=== PATIENT | female | born 1970 | race Caucasian/White ===

== ENCOUNTER → 2022-08-21 | Outpatient (CLI) | payer BC, MEDICARE, SELFPAY ==
[2022-08-21 17:42] LABS: Absolute Lymphocyte Count 2.14 X10^3/uL (0.83-4.51); Absolute Neutrophil Count 6.4 X10^3/uL (2.0-7.7); Basophil# 0.04 X10^3/uL; Basophil% 0.4 % (0-1); Eosinophil# 0.35 X10^3/uL; Eosinophils% 3.6 % (0-5); Hematocrit 44.8 % (37-47); Lymphocyte # 2.14 X10^3/ul (0.83-4.51); Lymphocyte % 21.9 % (19-41); Mean Corp Hgb Conc 33.5 g/dL (32-36); Mean Corpuscular Hgb 30.8 pg (27.0-32.0); Mean Platelet Vol. 9.2 fl (6.2-12.0); Monocyte# 0.76 X10^3/uL; Monocyte% 7.8 % (0-10); NRBC Flagged by Analyzer 0 % (0-5); Neutrophil # 6.43 X10^3/uL (2.7-7.7); Neutrophil % 65.9 % (47-70); Platelet Count 286 K/mm3 (150-450); RBC Distribution Width CV 13.1 % (11.6-14.6); RBC Distribution Width SD 43.9 fl (35.1-43.9); Red Blood Count 4.87 M/mm3 (4.2-5.4); White Blood Count 9.8 K/mm3 (4.4-11.0)
[2022-08-21 18:24] LABS: International Normalized Ratio 1.1; Prothrombin Time (Protime)PT. 14.3 SECONDS (11.7-14.9)
[2022-08-21 18:32] LABS: ALB/GLOB Ratio 0.9 RATIO (0.9-2.4); AST(SGOT) 32 U/L (15-37); Alanine Aminotransfer ALT/SGPT 29 U/L (13-56); Albumin, Serum 3.5 g/dL (3.2-5.0); Alkaline Phosphatase 280 U/L (45-117); Anion Gap 7 (5-15); BUN 10 mg/dL (7-18); Calcium,Total 10.2 mg/dL (8.5-10.1); Chloride 102 mmol/L (98-107); EST Glomerular Filtration Rate 69 mL/min (>60); Est Glom Filt Rate - Afr Amer 83 mL/min (>60); Globulin 3.7 g/dL (2.2-4.2); Glucose 50 mg/dL (74-106); Potassium 3.5 mmol/L (3.5-5.1); Protein, Total 7.2 g/dL (6.4-8.2); Sodium Level 142 mmol/L (136-145)
[2022-08-21 19:10] LABS: Hepatitis C Antibody Non-Reactive (Nonreactive); Vitamin D,25 Hydroxy 44.2 ng/mL
== END | disposition home or self-care (01) ==
PROVIDERS: Visit Provider Family Medicine Geriatric Medicine
DX: I81 Portal vein thrombosis (principal); I50.32 Chronic diastolic (congestive) heart failure; E87.6 Hypokalemia; E03.9 Hypothyroidism, unspecified; Z13.89 Encounter for screening for other disorder; E55.9 Vitamin D deficiency, unspecified
CPT/HCPCS: 36415; 80053; 82306; 84443; 85025; 85610; 86803

== ENCOUNTER → 2022-09-18 | Outpatient (CLI) | payer MEDICARE, BC, SELFPAY ==
--- NOTE | 2022-09-18 17:20 | RAD_ITS ---
INDICATION: NUMBNESS EXAMINATION/TECHNIQUE: X-RAY - XR Spine Cervical 4 or 5 Views COMPARISON: None. FINDINGS: VERTEBRAE: Preserved vertebral body height. No fracture. No spondylolisthesis. Straightening of the typical cervical lordosis. Mild lower cervical facet arthropathy. DISCS: Endplate disease and disc space loss most prominent at C6-7. NECK SOFT TISSUES: No prevertebral soft tissue widening. LUNG APICES: Clear. RAD/Cerv Spine 2 or 3 Views IMPRESSION: Lower cervical spine degenerative change. Electronically Signed: Leroy Pryor MD at 21:03 EDT ,
== END | disposition home or self-care (01) ==
PROVIDERS: PCP Family Medicine Geriatric Medicine; Visit Provider Family Medicine Geriatric Medicine
DX: R20.0 Anesthesia of skin (principal)
CPT/HCPCS: 72040

== ENCOUNTER → 2022-11-01 | Outpatient (CLI) | payer BC, MEDICARE, SELFPAY ==
--- NOTE | 2022-11-01 08:02 | BI_ITS ---
MAMMOGRAPHY - BILATERAL SCREENING REASON FOR EXAM: Female, 52 years old. Routine annual screening examination. PERTINENT HISTORY: Non-contributory. TECHNIQUE: Digital bilateral breast anabela (3D mammographic acquisition) in the CC and MLO projections. 2-D mediolateral oblique (MLO) and craniocaudad (CC) views of both breasts were obtained. CAD: Full Field Digital Mammography with Computer Added Detection was performed. COMPARISON: Comparison is made with prior abdomen examination dated February 20, 2018. FINDINGS: Breast Composition: There are scattered areas of fibroglandular density. There is a 1.3 cm x 0.9 cm nodule in the upper lateral aspect of the left breast. Correlation with ultrasound is recommended. This is new as compared to prior study. No other significant abnormalities are identified. BI/SCRN MAMM (CAD)W/ANABELA BILAT IMPRESSION: 1.3 cm x 0.9 cm nodular density in the upper lateral aspect of the left breast as described. Correlation with ultrasound is recommended. ASSESSMENT CATEGORY: BIRADS Category 0: Incomplete. Need additional imaging evaluation. A letter regarding these results will be sent to the patient by the facility within 30 days. Approximately 10% of breast cancers are not detected by mammography. A normal mammogram should not delay biopsy of a clinically suspicious abnormality. [id number] Electronically Signed: Hung Rivera MD at 11:08 EDT ,
== END | disposition home or self-care (01) ==
LOC: OPBI 07:58
PROVIDERS: PCP Family Medicine Geriatric Medicine; Referring Provider Family Medicine Geriatric Medicine; Visit Provider Family Medicine Geriatric Medicine
DX: Z12.31 Encounter for screening mammogram for malignant neoplasm of breast (principal); N63.21 Unspecified lump in the left breast, upper outer quadrant
CPT/HCPCS: 77063; 77067

== ENCOUNTER → 2022-11-06 | Outpatient (CLI) | payer MEDICARE, BC, SELFPAY ==
--- NOTE | 2022-11-06 11:06 | US_ITS ---
STUDY: ULTRASOUND BREAST - LEFT REASON FOR EXAM: Female, 52 years old. Abnormal screening mammogram. TECHNIQUE: Axial and longitudinal images of the LEFT breast were performed with a high resolution ultrasound transducer. # OF IMAGES: 53 COMPARISON: Comparison is made with prior mammogram dated November 01, 2022. FINDINGS: LEFT Breast: The mammographic abnormality corresponds to a 1.3 cm x 1.1 cm x 0.5 cm benign appearing lymph nodes at the 3:00 position of the breast at 9 cm from the nipple. US/Breast Limited Unilateral IMPRESSION: Findings suggestive by 1.3 cm x 1.1 cm x 0.5 cm benign-appearing lymph node at the 3:00 position of the breast and 9 cm from the nipple. ASSESSMENT CATEGORY: BIRADS Category 2: Benign. A letter regarding these results will be sent to the patient by the facility within 30 days. Electronically Signed: Hung Rivera MD at 9:53 EDT ,
[2022-11-06 12:21] LABS: Absolute Lymphocyte Count 1.61 X10^3/uL (0.83-4.51); Basophil# 0.05 X10^3/uL; Basophil% 0.5 % (0-1); Eosinophil# 0.35 X10^3/uL; Eosinophils% 3.5 % (0-5); Hematocrit 42.8 % (37-47); Hemoglobin 13.9 g/dL (12.0-15.0); Lymphocyte # 1.61 X10^3/ul (0.83-4.51); Lymphocyte % 16.1 % (19-41); Mean Corp Hgb Conc 32.5 g/dL (32-36); Mean Corpuscular Hgb 30.5 pg (27.0-32.0); Mean Corpuscular Volume 94.1 fL (81-99); Mean Platelet Vol. 8.8 fl (6.2-12.0); Monocyte# 0.99 X10^3/uL; Monocyte% 9.9 % (0-10); NRBC Flagged by Analyzer 0 % (0-5); Neutrophil # 6.95 X10^3/uL (2.7-7.7); Neutrophil % 69.3 % (47-70); Platelet Count 232 K/mm3 (150-450); RBC Distribution Width CV 13.8 % (11.6-14.6); RBC Distribution Width SD 47.4 fl (35.1-43.9); Red Blood Count 4.55 M/mm3 (4.2-5.4)
[2022-11-06 12:54] LABS: AST(SGOT) 33 U/L (15-37); Alanine Aminotransfer ALT/SGPT 47 U/L (13-56); Albumin, Serum 3.6 g/dL (3.2-5.0); Alkaline Phosphatase 229 U/L (45-117); Anion Gap 6 (5-15); BUN 22 mg/dL (7-18); BUN/Creat Ratio 19.1 RATIO (10-20); Calcium,Total 9.8 mg/dL (8.5-10.1); Chloride 97 mmol/L (98-107); Creatinine, Serum 1.15 mg/dL (0.55-1.02); EST Glomerular Filtration Rate 52 mL/min (>60); Est Glom Filt Rate - Afr Amer 63 mL/min (>60); Globulin 3.7 g/dL (2.2-4.2); Glucose 198 mg/dL (74-106); Potassium 3.8 mmol/L (3.5-5.1); Protein, Total 7.3 g/dL (6.4-8.2); Sodium Level 137 mmol/L (136-145); Thyroid Stim Hormone (TSH) 2.01 uIU/mL (0.358-3.74)
== END | disposition home or self-care (01) ==
PROVIDERS: PCP Family Medicine Geriatric Medicine; Referring Provider Family Medicine Geriatric Medicine; Visit Provider Family Medicine Geriatric Medicine
DX: R92.8 Other abnormal and inconclusive findings on diagnostic imaging of breast (principal); E11.42 Type 2 diabetes mellitus with diabetic polyneuropathy; I10 Essential (primary) hypertension
CPT/HCPCS: 36415; 76642; 80053; 84443; 85025

== ENCOUNTER → 2022-11-20 | Outpatient (CLI) | payer BC, MEDICARE, SELFPAY | END | disposition home or self-care (01) | LOC: PSN 09:57 | PROVIDERS: PCP Family Medicine Geriatric Medicine; Referring Provider Family Medicine Geriatric Medicine; Visit Provider Family Medicine Geriatric Medicine | DX: R68.83 Chills (without fever) (principal) | CPT/HCPCS: 87635; 87804; 87807; C9803; U0005 ==

== ENCOUNTER → 2022-12-04 | Outpatient (CLI) | payer MEDICARE, SELFPAY ==
[2022-12-04 16:55] LABS: Amphetamine Urine VISTA NEGATIVE (<1000 ng/mL); Barbiturate Urine VISTA NEGATIVE (< 200 ng/mL); Benzodiazepine Urine VISTA NEGATIVE (< 200 ng/mL); Cocaine Urine VISTA NEGATIVE (< 300 ng/mL); Ecstacy Urine VISTA NEGATIVE (< 500 ng/mL); Methadone Urine VISTA NEGATIVE (< 300 ng/mL); PCP Urine VISTA NEGATIVE (< 25 ng/mL); THC Urine VISTA POSITIVE (< 50 ng/mL); Vista UDS pH Range 6
== END | disposition home or self-care (01) ==
PROVIDERS: PCP Family Medicine Geriatric Medicine; Referring Provider Anesthesiology Pain Medicine; Visit Provider Anesthesiology Pain Medicine
DX: F11.20 Opioid dependence, uncomplicated (principal)
CPT/HCPCS: 80307

== ENCOUNTER → 2023-01-31 | Outpatient (CLI) | payer MEDICARE, SELFPAY ==
[2023-01-31 13:16] LABS: Absolute Lymphocyte Count 1.75 X10^3/uL (0.83-4.51); Absolute Neutrophil Count 6.3 X10^3/uL (2.0-7.7); Basophil# 0.04 X10^3/uL; Basophil% 0.4 % (0-1); Eosinophil# 0.19 X10^3/uL; Eosinophils% 2.1 % (0-5); Hematocrit 43.6 % (37-47); Hemoglobin 14.9 g/dL (12.0-15.0); Lymphocyte # 1.75 X10^3/ul (0.83-4.51); Lymphocyte % 19.2 % (19-41); Mean Corp Hgb Conc 34.2 g/dL (32-36); Mean Corpuscular Hgb 31.1 pg (27.0-32.0); Mean Platelet Vol. 9.1 fl (6.2-12.0); Monocyte# 0.83 X10^3/uL; Monocyte% 9.1 % (0-10); NRBC Flagged by Analyzer 0 % (0-5); Neutrophil # 6.28 X10^3/uL (2.7-7.7); Neutrophil % 68.8 % (47-70); Platelet Count 249 K/mm3 (150-450); RBC Distribution Width CV 13.7 % (11.6-14.6); RBC Distribution Width SD 45.8 fl (35.1-43.9); Red Blood Count 4.79 M/mm3 (4.2-5.4); White Blood Count 9.1 K/mm3 (4.4-11.0)
[2023-01-31 13:43] LABS: ALB/GLOB Ratio 0.8 RATIO (0.9-2.4); AST(SGOT) 23 U/L (15-37); Alanine Aminotransfer ALT/SGPT 27 U/L (13-56); Albumin, Serum 3.3 g/dL (3.2-5.0); Alkaline Phosphatase 308 U/L (45-117); Anion Gap 7 (5-15); BUN 17 mg/dL (7-18); BUN/Creat Ratio 13.4 RATIO (10-20); Calcium,Total 9.7 mg/dL (8.5-10.1); Chloride 98 mmol/L (98-107); Creatinine, Serum 1.27 mg/dL (0.55-1.02); EST Glomerular Filtration Rate 47 mL/min (>60); Est Glom Filt Rate - Afr Amer 56 mL/min (>60); Globulin 4.3 g/dL (2.2-4.2); Glucose 230 mg/dL (74-106); Potassium 3.7 mmol/L (3.5-5.1); Protein, Total 7.6 g/dL (6.4-8.2); Sodium Level 136 mmol/L (136-145); Thyroid Stim Hormone (TSH) 7.48 uIU/mL (0.358-3.74)
[2023-01-31 16:52] LABS: M R Staph aureus DNA By PCR Negative (Negative); Probe Check PASS; Staph aureus DNA By PCR POSITIVE (Negative)
== END | disposition home or self-care (01) ==
PROVIDERS: PCP Family Medicine Geriatric Medicine; Visit Provider Family Medicine Geriatric Medicine
DX: E11.65 Type 2 diabetes mellitus with hyperglycemia (principal); I10 Essential (primary) hypertension; L03.90 Cellulitis, unspecified
CPT/HCPCS: 36415; 80053; 84443; 85025; 87070; 87077; 87186; 87205; 87640

== ENCOUNTER → 2023-02-15 | Outpatient (CLI) | payer MEDICARE, SELFPAY ==
[2023-02-15 14:29] LABS: M R Staph aureus DNA By PCR Negative (Negative); Probe Check PASS; Staph aureus DNA By PCR POSITIVE (Negative)
== END | disposition home or self-care (01) ==
LOC: POLAB3 11:26
PROVIDERS: PCP Family Medicine Geriatric Medicine; Visit Provider Family Medicine Geriatric Medicine
DX: S31.109A Unspecified open wound of abdominal wall, unspecified quadrant without penetration into peritoneal cavity, initial encounter (principal); X58.XXXA Exposure to other specified factors, initial encounter
CPT/HCPCS: 87070; 87186; 87205; 87640

== ENCOUNTER → 2023-02-26 | Outpatient (CLI) | payer MEDICARE, OTHER, SELFPAY ==
[2023-02-26 12:22] LABS: International Normalized Ratio 1.1; Prothrombin Time (Protime)PT. 13.7 SECONDS (11.7-14.9)
== END | disposition home or self-care (01) ==
PROVIDERS: PCP Family Medicine Geriatric Medicine; Referring Provider Family Medicine Geriatric Medicine; Visit Provider Family Medicine Geriatric Medicine
DX: I81 Portal vein thrombosis (principal)
CPT/HCPCS: 36415; 85610

== ENCOUNTER 2023-02-27 09:00 | Outpatient (RCR) | payer MEDICARE, OTHER, SELFPAY ==
[2023-02-20 09:02] VITALS: BP 151/95; PULSE 87; RESP 20; TEMP 35.9; BMI 67.1
--- NOTE | 2023-02-20 10:10 | PCM.WC.HP ---
History of Present Illness Date of Service: 02/20/23 Chief Complaint: Intertrigo pannus ulcer History of Wound: 52 year old female presents with an ulcer on her lower abdomen/pannus ulcer that she states comes and goes, she has had this ulcer for several weeks. She was diagnosed with panniculitis and was treated with antibiotics (unsure which one). She was seen by her PCP, Dr. Solano, who did a wound culture on 02/15/23 which was positive for Serratia marcescens, Acinetobacter Lwoffi, Klebsiella peumoniae, Serratia odorifera, Coag Negative Staph, and Gram positive enoc. She was started on Levaquin for 7 days and referred to the wound healing center. She has a history of Type 2 IDDM, COPD, CHF, CKD stage 3, Migraine, hypothyroidism. She states her last HgA1c was 7.5. She is on Warfarin. She has been cleaning the wound with soap and water and keeping a dry wash cloth over the wound to absorb the drainage. She changes the wash cloth every couple days. She comes in today for further evaluation and treatment. Progress of Wound: Ulcer cluster intertrigo of pannus on the center, dependent, posterior portion of the pannus fold. The ulcer cluster is pink, tender to palpation. [facility] Medical History (Updated 02/26/23 @ 16:52 by Radha Lawrence NP, AGILITY INSTRUCTOR-C) Asthma CHF (congestive heart failure) COPD (chronic obstructive pulmonary disease) Depression Diabetes Fecal impaction of colon GERD (gastroesophageal reflux disease) Gout Hx of small bowel obstruction Hypokalemia Hypothyroidism Iron deficiency Migraine DYKES (nonalcoholic steatohepatitis) Portal vein thrombosis Home Medications ergocalciferol (vitamin D2) 1,250 mcg (50,000 unit) capsule (Vitamin D2) 50,000 unit PO Q7D 07/01/13 [History Last Taken Unknown] pantoprazole 40 mg granules delayed-release for susp in packet (Protonix) 40 mg PO BID 07/01/13 [History Last Taken Unknown] potassium gluconate 550 mg (90 mg) tablet 90 mg PO BID 07/01/13 [History Last Taken Unknown] fluoxetine 60 mg tablet 60 mg PO DAILY 09/20/22 [History Last Taken 02/20/23] gabapentin 400 mg capsule 400 mg PO TID 09/20/22 [History Last Taken Unknown] insulin regular hum U-500 conc 500 unit/mL subcutaneous soln (Humulin R U-500 (Concentrated) Insulin) 25 unit subcut ONCE 09/20/22 [History Last Taken Unknown] levothyroxine 125 mcg capsule 125 mcg PO DAILY 09/20/22 [History Last Taken Unknown] metoprolol succinate 50 mg tablet,extended release 24 hr 50 mg PO DAILY 09/20/22 [History Last Taken Unknown] spironolactone 100 mg tablet 300 mg PO BID 09/20/22 [History Last Taken Unknown] trazodone 100 mg tablet 100 mg PO DAILY 09/20/22 [History Last Taken Unknown] warfarin 5 mg tablet 5 mg PO QMWF 09/20/22 [History Last Taken Unknown] levofloxacin 500 mg tablet 500 mg PO DAILY 14 days #14 tabs 02/20/23 [Rx Last Taken Unknown] Allergy/AdvReac Type Severity Reaction Status Date / Time cobalt Allergy Rash Verified 09/20/22 08:54 Environmental Allergies: Allergy Rash Verified 10/18/22 14:30 Uncoded metformin Allergy Diarrhea Verified 09/20/22 08:54 nickel Allergy Rash Verified 09/20/22 08:54 Family History Mother Heart disease Arthritis Glaucoma Hypertension HLD (hyperlipidemia) Father Heart disease Hypertension HLD (hyperlipidemia) Surgical History H/O hernia repair H/O knee surgery H/O: hysterectomy History of carpal tunnel release Previous section Social History Smoking Status: Former smoker alcohol intake: never substance use type: marijuana ROS Constitutional Constitutional: Denies chills or fever(s) Eyes Eyes: Reports none ENT HEENT: Reports none Cardiovascular Cardiovascular: Denies chest pain or dyspnea Respiratory/Chest Respiratory/Chest: Reports systems reviewed and no addt'l complaints, except as documented Gastrointestinal Gastrointestinal: Reports as per HPI Musculoskeletal Musculoskeletal: Reports joint pain and joint stiffness Integumentary Integumentary: Reports skin ulcer Neurologic Neurologic: Reports none Psychiatric Psychiatric: Reports systems reviewed and no addt'l complaints, except as documented Endocrine Endocrinology: Reports systems reviewed and no addt'l complaints, except as documented Vital Signs Vital Signs Vital Signs: 02/20/23 09:02 Temperature 96.6 F L Temperature Source Temporal Pulse Rate 87 Respiratory Rate 20 H Blood Pressure 151/95 H Blood Pressure Mean 113 Blood Pressure Source Monitor Weight Weight: 366 lb 14.269 oz Body Mass Index (BMI) 67.1 Physical Exam Const alert, oriented x3 and well nourished General Appearance: cooperative HEENT normocephalic Head and Scalp: atraumatic Eyes General Eye: normal appearance of both eyes Neck full ROM Resp normal respiratory effort, normal air movement and clear to auscultation bilaterally Effort and Inspection: able to speak in complete sentences Cardio regular rate and regular rhythm GI soft to palpation and non-tender Back/Spine normal ROM Extremity full ROM and normal capillary refill Skin Wound Narrative: Ulcer cluster under intertrigo of pannus on the posterior portion of the pannus fold. The ulcer cluster is pink, tender to palpation. Debridement Note Debridement Note Post-Debridement Measurements and Additional Note: Post-Debridement Measurements/Treatment - Nurse 1 - General Ulcer Assessment Start: 02/20/23 08:52 Freq: Status: Active Protocol: AG.LOWANNAT Activity Type Activity Date Activity User E-sign Co-sign Detail Recorded Client Recorded Date Recorded By Document 02/20/23 09:02 Desktop 02/20/23 09:14 DL 02/20/23 09:02 - Today's Visit Information Type of service Initial Visit Arrival Mode Ambulatory, Wheelchair Transfer Assistance None Patient Identification Verified (Name & Yes ) Patient Requires Transmission-Based No Precautions Finger Stick Blood Sugar(mg/dl) (if 106 indicated): Blood Sugar Stated by Patient Height and Weight Height 5 ft 2 in Weight 366 lb 14.269 oz Weight in Pounds 366.9 lbs Body Mass Index (BMI) 67.1 BMI Classification Obese BSA - Benito 2.47 Vital Signs Temperature (97.8 F-99.1 F) 96.6 F L Temperature Source Temporal Pulse Rate (60-100) 87 Pulse Location Monitor Respiratory Rate (12-18) 20 H Blood Pressure (90/60-120/80) 151/95 H Blood Pressure Mean 113 Source Monitor Pain Scale: 0-10 Numeric Is Patient Pain Free? Yes Communication Assessment Preferred language Maltese Able to Read Yes Able to Write Yes Right Hearing Abillity Hard of Hearing Left Hearing Abillity Hard of Hearing Visual Assistive Devices Glasses Teaching Assessment Preferences Verbal,Written, Demonstration Barriers to Learning None Readiness To Learn Good Willingness to Engage in Self Management Med Activies Readiness to Engage in Self Management Med Activities Anxiety Level Calm Cooperation Cooperative Perception Coherent Interest in Health Problem Asks Questions Education Importance Acknowledges Need Does Patient Smoke tobacco or other No substances Smoking Status Former smoker Is Patient Diabetic Yes Functional Assessment Recent Decline in Ability to Perform Denies Any Declines Culture/Worship/Working Manager Cultural/Worship Needs that may affect No Treatment Plan Would you allow our [facility] resident engineer to No meet you for the purpose of spiritual/ emotional support? Working Manager to contact place of gnosticist No Teaching: Wound Center *Venous -Person Taught Patient Dressing Your Wound -Person Taught Patient *Welcome to the Wound Center -Person Taught Patient WC - Nurse 1 - General Ulcer Measurement Start: 02/20/23 08:52 Freq: Status: Active Protocol: Activity Type Activity Date Activity User E-sign Co-sign Detail Recorded Client Recorded Date Recorded By Document 02/20/23 09:02 DL Desktop 02/20/23 09:14 DL 02/20/23 09:02 Wound Center Nurse 1 #1 Lower ABD -Current Size (cm) - Length 2.6 -Current Size (cm) - Width 7.8 -Current Size (cm) - Depth 0.1 -Total Square Cm 20.28 -Photo Taken Yes -Exudate Amt Medium -Exudate Type Serosanguineous -Wound Margin Distinct, Outline Attached -Granulation Amt Large (67-100%) -Granulation Quality Red -Necrosis Amt None Present (0 %) -Structure Exposed N/A -Texture (Elizabeth-wound Skin Appearance) Scarring -Moisture (Elizabeth-wound Skin Appearance) No Abnormality -Color (Elizabeth-wound Skin Appearance) No Abnormality -Temperature (Elizabeth-wound Skin No Abnormality Appearance) (Pt Warm) -Tenderness on Palpation (Elizabeth-wound No Skin Appearance) -Ulcer Cleansing Soap and Water -Foul Odor after Cleansing No WC - Nurse 2 - General Ulcer CM Notes Start: 02/20/23 08:52 Freq: Status: Active Protocol: Activity Type Activity Date Activity User E-sign Co-sign Detail Recorded Client Recorded Date Recorded By Document 02/20/23 09:35 PETER [id number] 02/20/23 09:36 PETER 02/20/23 09:35 Wound Center Nurse 2 -Correct Patient No -Correct Side, Site, Position No -Correct Procedure No -Procedure Performed No -Wound/Ulcer Outcome Not Healed Pain Scale: 0-10 Numeric Is Patient Pain Free? Yes - Nurse 3 - General Ulcer D/C NN Start: 02/20/23 08:52 Freq: Status: Active Protocol: Activity Type Activity Date Activity User E-sign Co-sign Detail Recorded Client Recorded Date Recorded By Document 02/20/23 09:49 DL Desktop 02/20/23 09:50 DL Document 02/20/23 10:04 DL Desktop 02/20/23 10:07 DL 02/20/23 02/20/23 09:49 10:04 Wound Care Center Nurse 3 #1 Lower ABD -Ulcer Cleansing Rinsed/ Rinsed/ Irrigated with Irrigated with Saline Saline -Foul Odor after Cleansing No No -Primary Dressing Applied Aquacel AG 4x4 -Other Dressing BRAEDEN -Primary Dressing Covered/Secured with Dry Gauze, Dry Gauze & Secured with Roll Gauze, Tape Secured with Tape -Aquacel AG 4x4 1 Left -Tubular Bandage Double Layer -Size of Tubigrip Used Size C -Size C ($) 2 Treatment Response Procedure Tolerated Well Pain Scale: 0-10 Numeric Is Patient Pain Free? Yes Yes - Visit Discharge Discharge Condition Stable Stable Ambulatory Status Ambulatory, Ambulatory Wheelchair Transportation Private Auto Private Auto Charges/Coding Visit Charges Office Visits / Consults: 80052 OV L4 Est Assessment/Plan Assessment/Plan (1) Intertriginous skin ulcer, limited to breakdown of skin: CODE(S): L98.491 - Non-pressure chronic ulcer of skin of other sites limited to breakdown of skin (2) Morbid obesity with BMI of 60.0-69.9, adult: CODE(S): E66.01 - Morbid (severe) obesity due to excess calories; Z68.44 - Body mass index [BMI] 60.0-69.9, adult (3) Anticoagulant long-term use: CODE(S): Z79.01 - FPC (current) use of anticoagulants PLAN: Plan Patient evaluated at the wound healing center today. No debridement performed today. Ulcer is superficial. Wound care - Braeden covered with gauze daily after washing with soap and water. Her can help with her wound care. She is to continue the Levaquin that she was prescribed by her PCP for her positive wound culture 02/15/23 which was positive for Serratia marcescens, Acinetobacter Lwoffi, Klebsiella peumoniae, Serratia odorifera, Coag Negative Staph, and Gram positive enoc. She was started on Levaquin for 7 days. Will extend her Levaquin longer. She is to watch her INR while being on the Levaquin, whomever manages her Warfarin should be notified she is on an antibiotic. Encouraged a diet high in protein to help with wound healing. Greater than 25 minutes spent with patient evaluating, establishing plan of care, reviewing test results and chart and documenting.
[2023-02-27 09:02] VITALS: BP 139/78; PULSE 87; RESP 22; TEMP 36.4; BMI 67.1
--- NOTE | 2023-02-27 10:30 | PCM.WC.PN ---
History of Present Illness Date of Service: 02/27/23 Chief Complaint: Intertrigo pannus ulcer History of Wound: 52 year old female presents with an ulcer on her lower abdomen/pannus ulcer that she states comes and goes, she has had this ulcer for several weeks. She was diagnosed with panniculitis and was treated with antibiotics (unsure which one). She was seen by her PCP, Dr. Solano, who did a wound culture on 02/15/23 which was positive for Serratia marcescens, Acinetobacter Lwoffi, Klebsiella peumoniae, Serratia odorifera, Coag Negative Staph, and Gram positive enoc. She was started on Levaquin for 7 days and referred to the wound healing center. She has a history of Type 2 IDDM, COPD, CHF, CKD stage 3, Migraine, hypothyroidism. She states her last HgA1c was 7.5. She is on Warfarin. She has been cleaning the wound with soap and water and keeping a dry wash cloth over the wound to absorb the drainage. She changes the wash cloth every couple days. She comes in today for further evaluation and treatment. Progress of Wound: Ulcer cluster is smaller and is now a single ulcer in the intertrigo of pannus on the center, dependent, posterior portion of the pannus fold. The ulcer cluster is pink, smaller in size and looks much better. Her has been doing a good job with her wound care. Her insurance has approved her for debridement. Objective Data Objective Data Vital Signs: Vital Signs Temp Pulse Resp BP 97.6 F L 87 22 H 139/78 H 02/27/23 09:02 02/27/23 09:02 02/27/23 09:02 02/27/23 09:02 Weight: 366 lb 14.269 oz Body Mass Index (BMI) 67.1 Charges/Coding Procedures Integumentary [id number]: [id number] Mary subq tissue 20 sq cm/< Debridement Note Debridement Note Wound debrided: lower abdomen/pannus intertrigo Laterality: Not Applicable Wound Grade/Stage: Stage II Type of Debridement: Excisional debridement Anesthesia Used: 5% Lidocaine Gel Depth: Down to and including healthy tissue and in the subcutaneous layer Percentage of wound debrided: 100 Instrument Used: 5mm curette Tissue Removed: Non viable tissue and slough Severity: Fat Layer Exposed Amount of bleeding with debridement: Mild Bleeding Controlled with: Pressure and Compression and gauze Patient tolerated procedure: Patient tolerated procedure well Post-Debridement Measurements and Additional Note: Post-Debridement Measurements/Treatment WC - Nurse 1 - General Ulcer Assessment Start: 02/20/23 08:52 Freq: Status: Active Protocol: ANANDA Activity Type Activity Date Activity User E-sign Co-sign Detail Recorded Client Recorded Date Recorded By Document 02/20/23 09:02 DL Desktop 02/20/23 09:14 DL Document 02/27/23 09:02 DL [id number] 02/27/23 09:05 DL 02/20/23 02/27/23 09:02 09:02 WC - Today's Visit Information Type of service Initial Visit Follow-up Visit (Physician/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 ) Arrival Mode Ambulatory, Ambulatory, Wheelchair Wheelchair Transfer Assistance None None Patient Identification Verified (Name & Yes Yes ) Patient Requires Transmission-Based No No Precautions Finger Stick Blood Sugar(mg/dl) (if 106 179 indicated): Blood Sugar Stated by Stated by Patient Patient Height and Weight Height 5 ft 2 in Weight 366 lb 14.269 oz Weight in Pounds 366.9 lbs Body Mass Index (BMI) 67.1 67.1 BMI Classification Obese Obese BSA - Benito 2.47 Vital Signs Temperature (97.8 F-99.1 F) 96.6 F L 97.6 F L Temperature Source Temporal Temporal Pulse Rate (60-100) 87 87 Pulse Location Monitor Monitor Respiratory Rate (12-18) 20 H 22 H Respiratory rate source Observation Blood Pressure (90/60-120/80) 151/95 H 139/78 H Blood Pressure Mean (mm Hg) 113 98 Source Monitor Monitor History Since Last Visit- (Skip if this is Patient's initial visit) Have you changed medications since your No last visit? Any new allergies or adverse reactions No Had a fall/change in ADL's that may No increase risk of falls Signs or symptoms of abuse and/or No neglect since last visit Have you been in the hospital since your No last visit? Has dressing in place as prescribed Yes Has compression in place as prescribed N/A Has offloadiing in place as prescribed N/A Experienced any changes in pain level or No management Pain Scale: 0-10 Numeric Is Patient Pain Free? Yes Yes Communication Assessment Preferred language Upper Sorbian Able to Read Yes Able to Write Yes Right Hearing Abillity Hard of Hearing Left Hearing Abillity Hard of Hearing Visual Assistive Devices Glasses Teaching Assessment Preferences Verbal,Written, Demonstration Barriers to Learning None Readiness To Learn Good Willingness to Engage in Self Management Med Activies Readiness to Engage in Self Management Med Activities Anxiety Level Calm Cooperation Cooperative Perception Coherent Interest in Health Problem Asks Questions Education Importance Acknowledges Need Does Patient Smoke tobacco or other No substances Smoking Status Former smoker Is Patient Diabetic Yes Functional Assessment Recent Decline in Ability to Perform Denies Any Declines Culture/Mu-Ism/Manager Asset Cultural/Mu-Ism Needs that may affect No Treatment Plan Would you allow our hospital assistant project engineer to No meet you for the purpose of spiritual/ emotional support? Manager Asset to contact place of lutheran No Teaching: Wound Center *Venous -Person Taught Patient Dressing Your Wound -Person Taught Patient *Welcome to the Wound Center -Person Taught Patient WC - Nurse 1 - General Ulcer Measurement Start: 02/20/23 08:52 Freq: Status: Active Protocol: Activity Type Activity Date Activity User E-sign Co-sign Detail Recorded Client Recorded Date Recorded By Document 02/20/23 09:02 DL Desktop 02/20/23 09:14 DL Document 02/27/23 09:02 DL [id number] 02/27/23 09:05 DL 02/20/23 02/27/23 09:02 09:02 Wound Center Nurse 1 #1 Lower ABD -Current Size (cm) - Length 2.6 1.4 -Current Size (cm) - Width 7.8 1.5 -Current Size (cm) - Depth 0.1 0.1 -Total Square Cm 20.28 2.10 -Photo Taken Yes -Exudate Amt Medium Small -Exudate Type Serosanguineous -Wound Margin Distinct, Distinct, Outline Outline Attached Attached -Granulation Amt Large (67-100%) Large (67-100%) -Granulation Quality Red [place] -Necrosis Amt None Present (0 None Present (0 %) %) -Structure Exposed N/A N/A -Texture (Elizabeth-wound Skin Appearance) Scarring Scarring -Moisture (Elizabeth-wound Skin Appearance) No Abnormality No Abnormality -Color (Elizabeth-wound Skin Appearance) No Abnormality No Abnormality -Temperature (Elizabeth-wound Skin No Abnormality No Abnormality Appearance) (Pt Warm) (Pt Warm) -Tenderness on Palpation (Elizabeth-wound No No Skin Appearance) -Ulcer Cleansing Soap and Water Soap and Water -Foul Odor after Cleansing No No -Anesthetic Used 5% Lidocaine Gel - Nurse 2 - General Ulcer CM Notes Start: 02/20/23 08:52 Freq: Status: Active Protocol: Activity Type Activity Date Activity User E-sign Co-sign Detail Recorded Client Recorded Date Recorded By Document 02/20/23 09:35 [id number] 02/20/23 09:36 Document 02/27/23 09:31 [id number] 02/27/23 09:33 02/20/23 02/27/23 09:35 09:31 Wound Center Nurse 2 #1 Lower ABD -Time 09:32 -Correct Patient No Yes -Correct Side, Site, Position No Yes -Correct Procedure No Yes -Procedure Performed No Yes -Type of Procedure Debridement -Clinical Debridement Subcutaneous -Tissue Removed Subcutaneous -Post Debridement (cm) - Length 1.5 -Post Debridement (cm) - Width 1.5 -Post Debridement (cm) - Depth 0.1 -Total Square (Post) (cm) 2.25 -Area of Debridement (cm) - Length 1.5 -Area of Debridement (cm) - Width 1.5 -Total Square (Area) (cm) 2.25 -Tunneling No -Undermining/Tunneling No -Circular Undermining No -Wound/Ulcer Outcome Not Healed Not Healed -Ulcer Cleansing Rinsed/ Irrigated with Saline -Foul Odor after Cleansing No -Bioengineered Tissue No -Bleeding Controlled with Pressure -Treatment Response Procedure Tolerated Well -Offloading No -Debridement - Subq, 1st 20sq cm Yes Pain Scale: 0-10 Numeric Is Patient Pain Free? Yes Yes - Nurse 3 - General Ulcer D/C NN Start: 02/20/23 08:52 Freq: Status: Active Protocol: Activity Type Activity Date Activity User E-sign Co-sign Detail Recorded Client Recorded Date Recorded By Document 02/20/23 09:49 DL Desktop 02/20/23 09:50 DL Document 02/20/23 10:04 DL Desktop 02/20/23 10:07 DL Document 02/27/23 09:33 [id number] 02/27/23 09:34 02/20/23 02/20/23 02/27/23 09:49 10:04 09:33 Wound Care Center Nurse 3 #1 Lower ABD -Ulcer Cleansing Rinsed/ Rinsed/ Rinsed/ Irrigated with Irrigated with Irrigated with Saline Saline Saline -Foul Odor after Cleansing No No No -Primary Dressing Applied Aquacel AG 4x4 Promogran Braeden Matter -Other Dressing BAREDEN -Primary Dressing Covered/Secured with Dry Gauze, Dry Gauze & Dry Gauze, Secured with Roll Gauze, Secured with Tape Secured with Tape Tape -Aquacel AG 4x4 1 -Promogran Braeden Matter 1 Left -Tubular Bandage Double Layer -Size of Tubigrip Used Size C -Size C ($) 2 Treatment Response Procedure Tolerated Well Pain Scale: 0-10 Numeric Is Patient Pain Free? Yes Yes Yes WC - Visit Discharge Discharge Condition Stable Stable Stable Ambulatory Status Ambulatory, Ambulatory Wheelchair Wheelchair Transportation Private Auto Private Auto Private Auto Medication Reconcilliation completed & Yes provided to patient/care provider Clinical Summary of Care Provided Yes Assessment/Plan Assessment/Plan (1) Intertriginous skin ulcer, limited to breakdown of skin: CODE(S): L98.491 - Non-pressure chronic ulcer of skin of other sites limited to breakdown of skin (2) Morbid obesity with BMI of 60.0-69.9, adult: CODE(S): E66.01 - Morbid (severe) obesity due to excess calories; Z68.44 - Body mass index [BMI] 60.0-69.9, adult (3) Anticoagulant long-term use: CODE(S): Z79.01 - intermission coordinator (current) use of anticoagulants PLAN: Plan Patient evaluated at the wound healing center today. Wound care - Braeden covered with gauze daily after washing with soap and water. Her can help with her wound care. She is to continue the Levaquin that she was prescribed by her PCP for her positive wound culture 02/15/23 which was positive for Serratia marcescens, Acinetobacter Lwoffi, Klebsiella peumoniae, Serratia odorifera, Coag Negative Staph, and Gram positive enoc. She was started on Levaquin for 7 days. Will extend her Levaquin longer. She is to watch her INR while being on the Levaquin, whomever manages her Warfarin should be notified she is on an antibiotic. Encouraged a diet high in protein to help with wound healing. Follow up one week.
== END 2023-02-28 23:59 | disposition home or self-care (01) ==
LOC: WC 09:00
PROVIDERS: PCP Family Medicine Geriatric Medicine; Referring Provider Family Medicine Geriatric Medicine; Visit Provider Nurse Practitioner Family
DX: E11.622 Type 2 diabetes mellitus with other skin ulcer (principal); L98.491 Non-pressure chronic ulcer of skin of other sites limited to breakdown of skin; J44.9 Chronic obstructive pulmonary disease, unspecified; I50.9 Heart failure, unspecified; E11.22 Type 2 diabetes mellitus with diabetic chronic kidney disease; E66.01 Morbid (severe) obesity due to excess calories; Z68.44 Body mass index [BMI] 60.0-69.9, adult; Z79.4 Long term (current) use of insulin; N18.30 Chronic kidney disease, stage 3 unspecified; E03.9 Hypothyroidism, unspecified; Z87.891 Personal history of nicotine dependence; Z79.01 Long term (current) use of anticoagulants; L30.4 Erythema intertrigo; Z79.899 Other long term (current) drug therapy; Z79.890 Hormone replacement therapy
CPT/HCPCS: 11042; 99213; G0463

== ENCOUNTER 2023-03-13 08:18 | Outpatient (RCR) | payer MEDICARE, OTHER, SELFPAY ==
[2023-03-01 00:43] VITALS: BP 139/78; PULSE 87; RESP 22; TEMP 36.4; BMI 67.1
[2023-03-13 08:29] VITALS: BP 155/92; PULSE 98; RESP 20; TEMP 36; BMI 67.1
--- NOTE | 2023-03-13 11:14 | PN.PCM_ITS ---
History of Present Illness Date of Service: 03/13/23 Chief Complaint: Intertrigo pannus ulcer History of Wound: 52 year old female presents with an ulcer on her lower abdomen/pannus ulcer that she states comes and goes, she has had this ulcer for several weeks. She was diagnosed with panniculitis and was treated with antibiotics (unsure which one). She was seen by her PCP, Dr. Solano, who did a wound culture on 02/15/23 which was positive for Serratia marcescens, Acinetobacter Lwoffi, Klebsiella peumoniae, Serratia odorifera, Coag Negative Staph, and Gram positive enoc. She was started on Levaquin for 7 days and referred to the wound healing center. She has a history of Type 2 IDDM, COPD, CHF, CKD stage 3, Migraine, hypothyroidism. She states her last HgA1c was 7.5. She is on Warfarin. She has been cleaning the wound with soap and water and keeping a dry wash cloth over the wound to absorb the drainage. She changes the wash cloth every couple days. She comes in today for further evaluation and treatment. Progress of Wound: Ulcer cluster is healed today. Objective Data Objective Data Vital Signs: Vital Signs Temp Pulse Resp BP 96.8 F L 98 20 H 155/92 H 03/13/23 08:29 03/13/23 08:29 03/13/23 08:29 03/13/23 08:29 Weight: 366 lb 14.269 oz Body Mass Index (BMI) 67.1 Charges/Coding Visit Charges Office Visits / Consults: [id number] OV L3 Est Physical Exam Const alert, oriented x3 and well nourished General Appearance: cooperative HEENT normocephalic Head and Scalp: atraumatic Eyes General Eye: normal appearance of both eyes Neck full ROM Resp normal respiratory effort, normal air movement and clear to auscultation bilaterally Effort and Inspection: able to speak in complete sentences Cardio regular rate and regular rhythm GI soft to palpation and non-tender Back/Spine normal ROM Extremity full ROM and normal capillary refill Skin Wound Narrative: Ulcer cluster under intertrigo of pannus is healed today. Debridement Note Debridement Note No debridement was completed: No debridement was completed today Post-Debridement Measurements and Additional Note: Post-Debridement Measurements/Treatment WC - Nurse 1 - General Ulcer Assessment Start: 03/13/23 08:29 Freq: Status: Active Protocol: ANANDA Activity Type Activity Date Activity User E-sign Co-sign Detail Recorded Client Recorded Date Recorded By Document 03/13/23 08:29 DL [employer] 03/13/23 08:34 DL 03/13/23 08:29 - Today's Visit Information Type of service Follow-up Visit (Physician/RESIDENTIAL PROPERTY MANAGER ) Arrival Mode Ambulatory, Wheelchair Transfer Assistance None Patient Identification Verified (Name & Yes ) Patient Requires Transmission-Based No Precautions Height and Weight Body Mass Index (BMI) 67.1 BMI Classification Obese Vital Signs Temperature (97.8 F-99.1 F) 96.8 F L Temperature Source Temporal Pulse Rate (60-100) 98 Pulse Location Monitor Respiratory Rate (12-18) 20 H Respiratory rate source Observation Blood Pressure (90/60-120/80) 155/92 H Blood Pressure Mean (mm Hg) 113 Source Monitor History Since Last Visit- (Skip if this is Patient's initial visit) Have you changed medications since your No last visit? Any new allergies or adverse reactions No Had a fall/change in ADL's that may No increase risk of falls Signs or symptoms of abuse and/or No neglect since last visit Have you been in the hospital since your No last visit? Has dressing in place as prescribed Yes Has compression in place as prescribed N/A Has offloadiing in place as prescribed N/A Experienced any changes in pain level or No management Pain Scale: 0-10 Numeric Is Patient Pain Free? Yes - Nurse 1 - General Ulcer Measurement Start: 03/13/23 08:29 Freq: Status: Active Protocol: Activity Type Activity Date Activity User E-sign Co-sign Detail Recorded Client Recorded Date Recorded By Document 03/13/23 08:29 DL [employer] 03/13/23 08:34 DL 03/13/23 08:29 Wound Center Nurse 1 #1 Lower ABD -Current Size (cm) - Length 0.1 -Current Size (cm) - Width 0.1 -Current Size (cm) - Depth 0.1 -Total Square Cm 0.01 -Photo Taken Yes -Exudate Amt None Present -Wound Margin Flat & Intact -Granulation Amt Large (67-100%) -Granulation Quality [place] -Necrosis Amt None Present (0 %) -Structure Exposed N/A -Texture (Elizabeth-wound Skin Appearance) Scarring -Moisture (Elizabeth-wound Skin Appearance) No Abnormality -Color (Elizabeth-wound Skin Appearance) No Abnormality -Temperature (Elizabeth-wound Skin No Abnormality Appearance) (Pt Warm) -Tenderness on Palpation (Elizabeth-wound No Skin Appearance) -Ulcer Cleansing Soap and Water - Nurse 2 - General Ulcer CM Notes Start: 03/13/23 08:29 Freq: Status: Active Protocol: Activity Type Activity Date Activity User E-sign Co-sign Detail Recorded Client Recorded Date Recorded By Document 03/13/23 08:57 [id number] 03/13/23 08:58 03/13/23 08:57 Wound Center Nurse 2 -Correct Patient No -Correct Side, Site, Position No -Correct Procedure No -Procedure Performed No -Post Debridement (cm) - Length 0 -Post Debridement (cm) - Width 0 -Post Debridement (cm) - Depth 0 -Total Square (Post) (cm) 0 -Area of Debridement (cm) - Length 0 -Area of Debridement (cm) - Width 0 -Total Square (Area) (cm) 0 -Wound/Ulcer Outcome Healed- Epithelialized Pain Scale: 0-10 Numeric Is Patient Pain Free? Yes - Nurse 3 - General Ulcer D/C NN Start: 03/13/23 08:29 Freq: Status: Active Protocol: Activity Type Activity Date Activity User E-sign Co-sign Detail Recorded Client Recorded Date Recorded By Document 03/13/23 08:58 [id number] 03/13/23 08:58 03/13/23 08:58 Is Patient Pain Free? Yes - Visit Discharge Discharge Condition Stable Ambulatory Status Wheelchair Transportation Private Auto Accompanied by Medication Reconcilliation completed & Yes provided to patient/care provider Clinical Summary of Care Provided Yes Assessment/Plan Assessment/Plan (1) Intertriginous skin ulcer, limited to breakdown of skin: CODE(S): L98.491 - Non-pressure chronic ulcer of skin of other sites limited to breakdown of skin (2) Morbid obesity with BMI of 60.0-69.9, adult: CODE(S): E66.01 - Morbid (severe) obesity due to excess calories; Z68.44 - Body mass index [BMI] 60.0-69.9, adult (3) Anticoagulant long-term use: CODE(S): Z79.01 - 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 Her wound is healed today. Encouraged her to keep this area clean and dry and try to prevent the skin from rubbing together. She states she is trying to lose weight to also help with this issue. She is to completed the Levaquin that she was prescribed by her PCP for her positive wound culture 02/15/23 which was positive for Serratia marcescens, Acinetobacter Lwoffi, Klebsiella peumoniae, Serratia odorifera, Coag Negative Staph, and Gram positive enoc. She is to watch her INR while being on the Levaquin, whomever manages her Warfarin should be notified she is on an antibiotic. Encouraged a diet high in protein to help with wound healing. Follow up as needed.
== END 2023-03-15 07:32 | disposition home or self-care (01) ==
LOC: WC 08:18
PROVIDERS: PCP Family Medicine Geriatric Medicine; Referring Provider Family Medicine Geriatric Medicine; Visit Provider Nurse Practitioner Family
DX: Z09 Encounter for follow-up examination after completed treatment for conditions other than malignant neoplasm (principal); J44.9 Chronic obstructive pulmonary disease, unspecified; I50.9 Heart failure, unspecified; E11.22 Type 2 diabetes mellitus with diabetic chronic kidney disease; N18.30 Chronic kidney disease, stage 3 unspecified; Z79.01 Long term (current) use of anticoagulants
CPT/HCPCS: 99213; G0463

== ENCOUNTER 2023-04-29 23:14 | Emergency (ER) | payer MEDICARE, SELFPAY ==
[2023-04-29 23:14] VITALS: BP 155/79; PULSE 114; RESP 22; TEMP 37.4; O2SAT 95; BMI 71.8
--- NOTE | 2023-04-29 23:27 | RAD_ITS ---
STUDY: X-RAY - LEFT ANKLE REASON FOR EXAM: Female, 52 years old. pain TECHNIQUE: 3 view(s) of the ankle. COMPARISON: None. FINDINGS: Diffuse osteopenia, otherwise normal visualized distal tibia and fibula. Normal medial and lateral malleoli. Mild degenerative disease at the tibiotalar articulation otherwise normal ankle mortise. Plantar calcaneal spur and minimal enthesophytosis at the Achilles tendon insertion site. Otherwise normal visualized talus and calcaneus. The visualized subtalar, talonavicular, calcaneocuboid and tarsal articulations are normal. There is no demonstrated fracture. Soft tissue swelling of the distal calf and ankle. RAD/Ankle min 3 Views IMPRESSION: Soft tissue swelling along with mild degenerative disease. No acute fracture or subluxation. Electronically Signed: Delilah Davidson MD at 23:57 EDT ,
--- NOTE | 2023-04-29 23:28 | EDS_ITS ---
HPI History of Present Illness Chief Complaint: Lower Extremity Injury Narrative Narrative: Patient presents with ankle pain. She has a history of gout and this feels similar. She was on the way to the ED she is usually wheelchair-bound and slid out of her wheelchair. She did not injure anything and nothing else hurts other than her ankle. No fevers or chills, no chest pain or shortness of breath. No trauma of that left ankle, pain was gradual over the past 2 days. [facility] Medical History Asthma CHF (congestive heart failure) COPD (chronic obstructive pulmonary disease) Depression Diabetes Fecal impaction of colon GERD (gastroesophageal reflux disease) Gout Hx of small bowel obstruction Hypokalemia Hypothyroidism Iron deficiency Migraine DYKES (nonalcoholic steatohepatitis) Portal vein thrombosis Home Medications ergocalciferol (vitamin D2) 1,250 mcg (50,000 unit) capsule (Vitamin D2) 50,000 unit PO Q7D 07/01/13 [History Last Taken Unknown] pantoprazole 40 mg granules delayed-release for susp in packet (Protonix) 40 mg PO BID 07/01/13 [History Last Taken Unknown] potassium gluconate 550 mg (90 mg) tablet 90 mg PO BID 07/01/13 [History Last Taken Unknown] fluoxetine 60 mg tablet 60 mg PO DAILY 09/20/22 [History Last Taken 02/20/23] gabapentin 400 mg capsule 400 mg PO TID 09/20/22 [History Last Taken Unknown] insulin regular hum U-500 conc 500 unit/mL subcutaneous soln (Humulin R U-500 (Concentrated) Insulin) 25 unit subcut ONCE 09/20/22 [History Last Taken Unknown] levothyroxine 125 mcg capsule 125 mcg PO DAILY 09/20/22 [History Last Taken Unknown] metoprolol succinate 50 mg tablet,extended release 24 hr 50 mg PO DAILY 09/20/22 [History Last Taken Unknown] spironolactone 100 mg tablet 300 mg PO BID 09/20/22 [History Last Taken Unknown] trazodone 100 mg tablet 100 mg PO DAILY 09/20/22 [History Last Taken Unknown] warfarin 5 mg tablet 5 mg PO QMWF 09/20/22 [History Last Taken Unknown] levofloxacin 500 mg tablet 500 mg PO DAILY 14 days #14 tabs 02/20/23 [Rx Last Taken Unknown] oxycodone-acetaminophen 5 mg-325 mg tablet (Percocet) 1 tab PO Q6H 3 days #12 tabs 04/30/23 [Rx Last Taken Unknown] Allergy/AdvReac Type Severity Reaction Status Date / Time cobalt Allergy Rash Verified 04/29/23 23:18 Environmental Allergies: Allergy Rash Verified 04/29/23 23:18 Uncoded metformin Allergy Diarrhea Verified 04/29/23 23:18 nickel Allergy Rash Verified 04/29/23 23:18 Family History Mother Heart disease Arthritis Glaucoma Hypertension HLD (hyperlipidemia) Father Heart disease Hypertension HLD (hyperlipidemia) Surgical History H/O hernia repair H/O knee surgery H/O: hysterectomy History of carpal tunnel release Previous section Social History Smoking Status: Former smoker alcohol intake: never substance use type: marijuana ROS ROS ED ROS Narrative General: No fever Eyes: No visual changes ENT: No upper airway congestion, normal voice Neck: No neck pain Cardiovascular: No chest pain Respiratory: No shortness of breath or cough Gastrointestinal: No abdominal pain, nausea vomiting or diarrhea Genitourinary: No dysuria Musculoskeletal: Left ankle pain Skin: No rash Neurological: No memory loss, confusion or any focal weakness Psych: No recent behavioral changes EXAM Physical Exam Narrative Exam Narrative: Physical exam General: Appears uncomfortable Head: Normocephalic, Atraumatic Eyes: Conjunctiva not pale ENT: Moist mucous membranes Neck: Supple, Nontender, No lymphadenopathy Cardiovascular: Regular rate, Regular rhythm Respiratory: No distress, CTA bilaterally Abdomen: Soft, Nontender, Nondistended Back: Nontender, Normal Inspection. Negative for: CVA tenderness Extremities: Left ankle has slight edema and a small effusion. There is no erythema or calor. Otherwise bilateral lower extremity edema which is symmetric and chronic. Skin: Normal color, No rash Neurological: Alert, Normal Strength, Normal Sensation Psychological: Normal affect Const Vital Signs: 04/29/23 23:14 Temperature 99.3 F H Temperature Source Oral Pulse Rate 114 H Respiratory Rate 22 H Blood Pressure 155/79 H Blood Pressure Mean 104 Pulse Ox 95 Oxygen Delivery Method Room Air MDM MDM MDM Narrative Medical decision making narrative: Patient has ankle pain and a small effusion. I do believe this is likely consistent with gout. She does not have any erythema calor or fevers, she does have some leukocytosis which is likely reactive, also CRP is somewhat elevated and ESR somewhat elevated but I believe this is secondary to the inflammation from the gout. Uric acid is elevated, consistent with gouty arthritis. He has had gout in the past and she tells me this feels the same. I do not believe the patient has septic arthritis at this time. I am reluctant to give her colchicine, she has limited mobility secondary to her morbid obesity and BMI of 71, she could have diarrhea and with her ankle pain could not get to the bathroom in time. I will treat her with analgesia. Was given morphine and then Dilaudid in the ED with improvement of symptoms. I will discharge her with Percocet. She knows that if she has fevers chills or worsening symptoms she is to return. Lab Data Labs: Laboratory Results - last 24 hr 04/29/23 23:35 WBC 16.7 H RBC 4.56 Hgb 13.8 Hct 41.3 MCV 90.6 MCH 30.3 MCHC 33.4 RDW Std Deviation 45.6 H RDW Coeff of Joseph 13.9 Plt Count 303 MPV 9.1 Immature Gran % (Auto) 1.400 H Neut % (Auto) 79.4 H Lymph % (Auto) 10.2 L [place] % (Auto) 7.3 Eos % (Auto) 1.3 Baso % (Auto) 0.4 Absolute Neuts (auto) 13.3 H Absolute Lymphs (auto) 1.71 Nucleated RBC % 0 ESR 32 H Sodium 136 Potassium 3.4 L Chloride 96 L Carbon Dioxide 35.0 H Anion Gap 5 BUN 16 Creatinine 1.25 H Estim Creat Clear Calc 40.69 Est GFR (MDRD) Af Amer 57 L Est GFR (MDRD) Non-Af 47 L BUN/Creatinine Ratio 12.8 Glucose 155 H Uric Acid 8.3 H Calcium 9.2 Total Bilirubin 0.50 AST 40 H ALT 37 Alkaline Phosphatase 302 H C-React Prot Ext Range 37.20 H Total Protein 7.6 Albumin 3.5 Globulin 4.1 Albumin/Globulin Ratio 0.9 Radiography Diagnostic Testing: Clinical Impression(s) from Imaging Studies Ankle X-Ray 04/29/23 23:27 IMPRESSION: Soft tissue swelling along with mild degenerative disease. No acute fracture or subluxation. Electronically Signed: Delilah Davidson MD at 23:57 EDT , Discharge Plan Triage Chief Complaint: Lower Extremity Injury ED Provider: Leroy Marin Dx/Rx/DC Orders Clinical Impression: Ankle joint pain, Gouty arthritis Instructions: ED Gout, ED Gout Diet Prescriptions: New oxycodone-acetaminophen [Percocet] 5-325 mg tablet 1 tab PO Q6H 3 Days Qty: 12 0RF No Action metoprolol succinate 50 mg tablet extended release 24 hr 50 mg PO DAILY trazodone 100 mg tablet 100 mg PO DAILY spironolactone 100 mg tablet 300 mg PO BID levothyroxine 125 mcg capsule 125 mcg PO DAILY Humulin R U-500 (Conc) Insulin 500 unit/mL solution 25 unit subcut ONCE fluoxetine 60 mg tablet 60 mg PO DAILY gabapentin 400 mg capsule 400 mg PO TID warfarin 5 mg tablet 5 mg PO QMWF ergocalciferol (vitamin D2) [Vitamin D2] 50,000 UNIT capsule 50,000 unit PO Q7D pantoprazole [Protonix] 40 MG packet 40 mg PO BID potassium gluconate 90 MG tablet 90 mg PO BID levofloxacin 500 mg tablet 500 mg PO DAILY 14 Days Qty: 14 0RF Primary Care Provider: Logan Solano Chi Referrals: Logan Solano Chi, MD [Primary Care Provider] - 3-5 Days Disposition Disposition: Home, Self Care
[2023-04-29] MEDS: Morphine 4 MG/ML Syringe IV (23:42)
[2023-04-29] MEDS: Ondansetron 4 MG/2 ML Vial IV (23:42)
[2023-04-29 23:47] LABS: Erythrocyte Sedimentation Rate 32 mm/hr (0-30)
[2023-04-30 00:02] LABS: ALB/GLOB Ratio 0.9 RATIO (0.9-2.4); AST(SGOT) 40 U/L (15-37); Alanine Aminotransfer ALT/SGPT 37 U/L (13-56); Albumin, Serum 3.5 g/dL (3.2-5.0); Alkaline Phosphatase 302 U/L (45-117); Anion Gap 5 (5-15); BUN 16 mg/dL (7-18); BUN/Creat Ratio 12.8 RATIO (10-20); Calcium,Total 9.2 mg/dL (8.5-10.1); Chloride 96 mmol/L (98-107); Creatinine, Serum 1.25 mg/dL (0.55-1.02); EST Glomerular Filtration Rate 47 mL/min (>60); Est Glom Filt Rate - Afr Amer 57 mL/min (>60); Estimated Creatinine Clearance 40.69 ml/min; Globulin 4.1 g/dL (2.2-4.2); Glucose 155 mg/dL (74-106); Potassium 3.4 mmol/L (3.5-5.1); Protein, Total 7.6 g/dL (6.4-8.2); Sodium Level 136 mmol/L (136-145); Uric Acid 8.3 mg/dL (2.6-6.0)
[2023-04-30 00:06] LABS: Absolute Lymphocyte Count 1.71 X10^3/uL (0.83-4.51); Absolute Neutrophil Count 13.3 X10^3/uL (2.0-7.7); Basophil# 0.06 X10^3/uL; Basophil% 0.4 % (0-1); Eosinophil# 0.22 X10^3/uL; Eosinophils% 1.3 % (0-5); Hematocrit 41.3 % (37-47); Hemoglobin 13.8 g/dL (12.0-15.0); Lymphocyte # 1.71 X10^3/ul (0.83-4.51); Lymphocyte % 10.2 % (19-41); Mean Corp Hgb Conc 33.4 g/dL (32-36); Mean Corpuscular Hgb 30.3 pg (27.0-32.0); Mean Corpuscular Volume 90.6 fL (81-99); Mean Platelet Vol. 9.1 fl (6.2-12.0); Monocyte# 1.22 X10^3/uL; Monocyte% 7.3 % (0-10); NRBC Flagged by Analyzer 0 % (0-5); Neutrophil # 13.28 X10^3/uL (2.7-7.7); Neutrophil % 79.4 % (47-70); Platelet Count 303 K/mm3 (150-450); RBC Distribution Width CV 13.9 % (11.6-14.6); RBC Distribution Width SD 45.6 fl (35.1-43.9); Red Blood Count 4.56 M/mm3 (4.2-5.4); White Blood Count 16.7 K/mm3 (4.4-11.0)
[2023-04-30 00:40] VITALS: BP 146/97; PULSE 109; RESP 14; O2SAT 98
[2023-04-30] MEDS: HYDROmorphone 1 MG/ML Syringe IV (00:41)
== END 2023-04-30 01:07 | disposition home or self-care (01) ==
PROVIDERS: Emergency Provider Emergency Medicine; PCP Family Medicine Geriatric Medicine; Visit Provider Emergency Medicine
DX: M25.572 Pain in left ankle and joints of left foot (principal); I50.9 Heart failure, unspecified; M10.9 Gout, unspecified; F12.90 Cannabis use, unspecified, uncomplicated; E66.9 Obesity, unspecified; Z79.01 Long term (current) use of anticoagulants; Z87.891 Personal history of nicotine dependence
CPT/HCPCS: 73610; 80053; 84550; 85025; 85652; 86140; 96374; 96375; 99284; A4216; J2405

== ENCOUNTER 2023-05-01 00:16 | Emergency (ER) | payer MEDICARE, SELFPAY ==
[2023-05-01 00:18] VITALS: PULSE 112; RESP 18; TEMP 38.3; O2SAT 95; BMI 69.9
--- NOTE | 2023-05-01 00:19 | RAD_ITS ---
EXAM: XR PELVIS, 1 OR 2 VIEWS CLINICAL INDICATION: fall TECHNIQUE: Frontal view of the pelvis. COMPARISON: No relevant prior studies available. FINDINGS: BONES/JOINTS: Mild degenerative changes of the hips. No displaced fracture. No destructive or sclerotic lesions. Note that overlapping bowel shadows may however obscure fine detail. Sacroiliac joints are unremarkable. No widening of the pubic symphysis. SOFT TISSUES: Unremarkable. No soft tissue swelling or gas. RAD/Pelvis 1 or 2 Views IMPRESSION: 1. No acute injuries identified involving the pelvis. 2. Mild degenerative changes of the hips. Electronically Signed: Reilly Rossi MD at 1:17 EDT ,
[2023-05-01 00:24] VITALS: BP 113/68; PULSE 108; RESP 20; TEMP 38.3; O2SAT 94
--- NOTE | 2023-05-01 00:28 | RAD_ITS ---
EXAM: XR RIGHT KNEE, 3 VIEWS CLINICAL INDICATION: fall TECHNIQUE: Three views of the right knee. COMPARISON: No relevant prior studies available. FINDINGS: BONES/JOINTS: Moderate tricompartmental degenerative changes. No acute fracture. No subluxation. Normal alignment. No sclerotic or destructive changes observed. SOFT TISSUES: Unremarkable. No soft tissue swelling or gas. No radiopaque foreign body. RAD/Knee 3 Views IMPRESSION: 1. No acute injury is identified involving the right knee. 2. Moderate tricompartmental degenerative changes. Electronically Signed: Reilly Rossi MD at 1:16 EDT ,
--- NOTE | 2023-05-01 00:28 | RAD_ITS ---
EXAM: XR RIGHT ANKLE COMPLETE, 3 OR MORE VIEWS CLINICAL INDICATION: fall TECHNIQUE: Frontal, lateral and oblique views of the right ankle. COMPARISON: No relevant prior studies available. FINDINGS: BONES/JOINTS: Unremarkable. No acute fracture. No subluxation. Normal alignment. Preservation of the joint space. No sclerotic or destructive changes observed. SOFT TISSUES: Benign soft tissue calcifications. No soft tissue swelling or gas. No radiopaque foreign body. RAD/Ankle min 3 Views IMPRESSION: No acute findings in the right ankle. Benign soft tissue calcifications, which may indicate chronic sequela of connective tissue or dermatologic disease. Electronically Signed: Reilly Rossi MD at 1:15 EDT ,
--- NOTE | 2023-05-01 00:28 | RAD_ITS ---
EXAM: XR RIGHT FEMUR, 2 VIEWS CLINICAL INDICATION: fall TECHNIQUE: Frontal and lateral views of the right femur. COMPARISON: No relevant prior studies available. FINDINGS: BONES/JOINTS: Mild degenerative changes of the hip and knee. No acute fracture. No subluxation. Normal alignment. No sclerotic or destructive changes observed. SOFT TISSUES: Unremarkable. No soft tissue swelling or gas. No radiopaque foreign body. RAD/Femur Min 2 Views IMPRESSION: No acute findings in the right femur. Electronically Signed: Reilly Rossi MD at 1:15 EDT ,
--- NOTE | 2023-05-01 00:29 | EDS_ITS ---
HPI History of Present Illness HPI Narrative: 52-year-old female history of gout, diabetes, CHF, COPD and anemia. On chronic anticoagulation. Was seen in the last 48 hours for gout flare. Reportedly fell at home complaining of right knee pain. Brought in by ambulance. Denies any head injury. Denies any headache. The fall seems like it was 24 to 36 hours ago. Chief Complaint: Lower Extremity Injury Informant: patient Occured/Mechanism Mechanism/Context: Yes injury and Yes blunt trauma Onset/Context/Timing Onset: Yesterday Context: Gradual Onset Timing: Continuous Current Severity: Moderate Maximum Severity: Moderate Associated Symptoms Associated Symptoms: Negative for Parasthesia, Weakness or Loss of Funtion Narrative Narrative: 52-year-old female fell at home a day or so ago complaining of right hip and right knee pain primarily. Denies any LOC. No head injury. No headache. Prior similar symptoms: No Recent Illness/Hospitalization: No PFSH PFSH Medical History Asthma CHF (congestive heart failure) COPD (chronic obstructive pulmonary disease) Depression Diabetes Fecal impaction of colon GERD (gastroesophageal reflux disease) Gout Hx of small bowel obstruction Hypokalemia Hypothyroidism Iron deficiency Migraine DYKES (nonalcoholic steatohepatitis) Portal vein thrombosis Home Medications ergocalciferol (vitamin D2) 1,250 mcg (50,000 unit) capsule (Vitamin D2) 50,000 unit PO Q7D 07/01/13 [History Last Taken Unknown] pantoprazole 40 mg granules delayed-release for susp in packet (Protonix) 40 mg PO BID 07/01/13 [History Last Taken Unknown] potassium gluconate 550 mg (90 mg) tablet 90 mg PO BID 07/01/13 [History Last Taken Unknown] fluoxetine 60 mg tablet 60 mg PO DAILY 09/20/22 [History Last Taken 02/20/23] gabapentin 400 mg capsule 400 mg PO TID 09/20/22 [History Last Taken Unknown] insulin regular hum U-500 conc 500 unit/mL subcutaneous soln (Humulin R U-500 (Concentrated) Insulin) 25 unit subcut ONCE 09/20/22 [History Last Taken Unknown] levothyroxine 125 mcg capsule 125 mcg PO DAILY 09/20/22 [History Last Taken Unknown] metoprolol succinate 50 mg tablet,extended release 24 hr 50 mg PO DAILY 09/20/22 [History Last Taken Unknown] spironolactone 100 mg tablet 300 mg PO BID 09/20/22 [History Last Taken Unknown] trazodone 100 mg tablet 100 mg PO DAILY 09/20/22 [History Last Taken Unknown] warfarin 5 mg tablet 5 mg PO QMWF 09/20/22 [History Last Taken Unknown] levofloxacin 500 mg tablet 500 mg PO DAILY 14 days #14 tabs 02/20/23 [Rx Last Taken Unknown] oxycodone-acetaminophen 5 mg-325 mg tablet (Percocet) 1 tab PO Q6H 3 days #12 tabs 04/30/23 [Rx Last Taken Unknown] albuterol sulfate 90 mcg/actuation aerosol inhaler inhalation 05/01/23 [History Last Taken Unknown] citalopram 20 mg tablet mg 05/01/23 [History Last Taken Unknown] cyclobenzaprine 5 mg tablet mg 05/01/23 [History Last Taken Unknown] gabapentin 300 mg capsule mg 05/01/23 [History Last Taken Unknown] levothyroxine 200 mcg tablet (Synthroid) mcg 05/01/23 [History Last Taken Unknown] levothyroxine 50 mcg tablet (Synthroid) mcg 05/01/23 [History Last Taken Unknown] pantoprazole 40 mg tablet,delayed release mg PO 05/01/23 [History Last Taken Unknown] rosuvastatin 40 mg tablet mg 05/01/23 [History Last Taken Unknown] tramadol 50 mg tablet mg 05/01/23 [History Last Taken Unknown] Allergy/AdvReac Type Severity Reaction Status Date / Time dulaglutide [From [facility]] Allergy Mild pancreatiti Verified 05/01/23 00:29 s cobalt Allergy Rash Verified 05/01/23 00:28 Environmental Allergies: Allergy Rash Verified 05/01/23 00:28 Uncoded metformin Allergy Diarrhea Verified 05/01/23 00:28 nickel Allergy Rash Verified 05/01/23 00:28 Family History Mother Heart disease Arthritis Glaucoma Hypertension HLD (hyperlipidemia) Father Heart disease Hypertension HLD (hyperlipidemia) Surgical History H/O hernia repair H/O knee surgery H/O: hysterectomy History of carpal tunnel release Previous section Social History Smoking Status: Former smoker alcohol intake: never substance use type: marijuana ROS ROS ED ROS Narrative Denies. Review of Systems ROS Unobtainable: Denies due to encephalopathy Constitutional Constitutional ED: Denies chills or fever(s) Eyes Eyes: Denies blurry vision ENT ENT ED: Denies ear pain Cardiovascular Cardiovascular: Denies chest pain Respiratory/Chest Respiratory/Chest: Denies cough Gastrointestinal Gastrointestinal: Denies abdominal pain Genitourinary Genitourinary ED: Denies dysuria Musculoskeletal Musculoskeletal: Reports arthralgias Integumentary Denies abscess or Abrasions Neurologic Neurologic: Denies headache(s) Psychiatric Psychiatric: Denies anxiety Endocrine Endocrinology: Denies polydipsia Hematologic/Lymphatic Hematologic/Lymphatic: Denies easy bleeding Allergic/Immunologic Allergic/Immunologic ED: Denies mouth swelling or tongue swelling EXAM Physical Exam Narrative Exam Narrative: 52-year-old female. Vital signs are stable. She does have a fever of 101. Patient she has had upper respiratory infection and nasal congestion last several days. Denies any shortness of breath. Denies any abdominal pain. Denies any dysuria. HEENT exam unremarkable. Moist with membranes. No trauma to her scalp or face. Nontender. Neck nontender. Lungs clear to auscultation bilaterally. Heart tachycardic rate about 110 no murmur. Chest wall and ribs nontender. Abdomen morbidly obese soft nontender. No peritoneal signs. Back nontender. Moving all 4 extremities. Upper extremities are nontender normal rhinestone setter strength. No deformity. She has tenderness primarily to right lateral knee. There is no shortening or deformity of the right hip. He has some mild swelling and tenderness of the right lateral malleolus. Dorsi and plantarflexion is intact of the right ankle. Flexiseq intact the right knee and hip. No shortening. Left upper and lower extremities are unremarkable. Neurologically she is awake and alert. Answer questions following commands. Const Vital Signs: 05/01/23 00:18 05/01/23 00:24 05/01/23 02:17 Temperature 101.0 F H 101 F H Temperature Source Oral Oral Pulse Rate 112 H 108 H Respiratory Rate 18 20 H 18 Blood Pressure 113/68 Blood Pressure Mean 83 Pulse Ox 95 94 Oxygen Delivery Method Nasal Cannula Nasal Cannula Oxygen Flow Rate (L/min) 2 2 Positive well nourished, well developed and obese; Negative for cachectic, contractures or unkempt General Appearance ED: well developed and NAD; Negative for unkempt, cachectic or contractures Nutritional Appearance: obese; Negative for cachectic HEENT Reports moist mucous membranes normocephalic and atraumatic; Negative for trauma or tenderness Eyes PERRL General Eye ED: Negative for other Neck full ROM and supple Thyroid: Negative for tender Lymph Lymphatic: Negative for other Chest Wall inspection of chest normal and palpation of chest normal Chest: Negative for other Resp normal respiratory effort, no retractions and clear to auscultation bilaterally Effort and Inspection: Negative for pain with movement Auscultation: Negative for rales, rhonchi or wheezes Cardio regular rhythm, S1 normal heart sound, S2 normal heart sound and no murmurs; Negative for regular rate Rate: tachycardic GI non-tender, non-distended and no masses Inspection: Negative for abdominal distention Auscultation: normoactive bowel sounds Palpation: soft; Negative for tender or guarding Bladder / Kidney Exam: No other Back/Spine no CVA tenderness General Back: Negative for CVA tenderness Cervical Spine: Negative for cervical spine tenderness Thoracic Spine / Upper Back: Negative for thoracic spinal tenderness Lumbar Spine / Lower Back: Negative for lumbar spinal tenderness Extremity normal to inspection and full ROM Extremity Narrative: Tenderness right lateral knee. No deformity. Normal flexion extension of the hip and knee. Tenderness and swelling right lateral malleolus. Normal range of motion right hip. No cellulitis. Both upper and left lower extremities have no significant tenderness. Normal range of motion. General Extremety ED: Yes edema General Extremity: edema Neuro oriented x3 and CN's II-XII intact bilaterally Sensorium / Orientation: alert, oriented to person, oriented to place and orie nted to time; Negative for orientation impaired, confused, lethargic, stuporous or other Motor Exam: strength 5/5 throughout Psych mental status grossly normal Appearance: Negative for unkempt Speech: No other Mood & Affect: Negative for anxious Skin no wounds Lesions: no lesions Rashes: no rashes Trauma: Negative for abrasion or laceration Image ED - Lower Extremity Diagram: 1. Tender right lateral knee. 2. Tender and swollen right lateral ankle. MDM MDM MDM Narrative Medical decision making narrative: 52-year-old female presents with a recent fall complaining of right lower extremity pain primarily knee and ankle. Incidentally she has a fever of 101 states she has had recent nasal congestion and viral URI symptoms. Denies any shortness of breath or productive cough. No abdominal pain. No dysuria. Patient treated with Percocet for pain. Repeat exam showed no significant change. I reevaluated the right hip, right knee and ankle. There is no redness, warmth or any signs of a significant effusion. The pain is mostly on her right knee. She is able to flex and extend at the hip, knee and ankle. She uses a wheelchair at home and walks very little normally. She and her are both comfortable with her being discharged home. She requested something else for pain so she will be given a shot of IM morphine. All her x-ray showed chronic changes but no acute fracture nor dislocation. History & Record Review Discussion w/independent historian: Patient Additional record(s) reviewed:: Prior inpatient record, Prior outpatient record, Prior ED visit and Prior labs Radiography Diagnostic Testing: Clinical Impression(s) from Imaging Studies Pelvis X-Ray 05/01/23 00:19 IMPRESSION: 1. No acute injuries identified involving the pelvis. 2. Mild degenerative changes of the hips. Electronically Signed: Reilly Rossi MD at 1:17 EDT Reading Location ID and State: Replaced by [facility] / [place] Tel , Service support , Ankle X-Ray 05/01/23 00:28 IMPRESSION: No acute findings in the right ankle. Benign soft tissue calcifications, which may indicate chronic sequela of connective tissue or dermatologic disease. Electronically Signed: Reilly Rossi MD at 1:15 EDT Reading Location ID and State: [facility] / [place] Tel , Service support , Femur X-Ray 05/01/23 00:28 IMPRESSION: No acute findings in the right femur. Electronically Signed: Reilly Rossi MD at 1:15 EDT Reading Location ID and State: [facility] / [place] Tel , Service support , Knee X-Ray 05/01/23 00:28 IMPRESSION: 1. No acute injury is identified involving the right knee. 2. Moderate tricompartmental degenerative changes. Electronically Signed: Reilly Rossi MD at 1:16 EDT , Right hip and pelvis x-ray 2 views interpreted by myself and the radiologist shows no acute abnormality. No fractures. Right femur x-ray 4 views interpreted by myself and the radiologist shows no acute abnormality. Chronic changes. Right knee x-ray 3 interpreted both by myself and the radiologist shows severe degenerative arthritis but no acute fracture. Right ankle x-ray 3 views interpreted both by myself and the radiologist shows no acute abnormality. No fracture. Mild soft tissue swelling. Chronic lindsey ges. Discharge Plan Triage Chief Complaint: Lower Extremity Injury ED Provider: Simba Chavez Dx/Rx/DC Orders Clinical Impression: Viral respiratory illness, Right knee sprain, History of gout, History of diabetes mellitus, Fall Instructions: ED Knee Sprain Prescriptions: No Action metoprolol succinate 50 mg tablet extended release 24 hr 50 mg PO DAILY trazodone 100 mg tablet 100 mg PO DAILY spironolactone 100 mg tablet 300 mg PO BID levothyroxine 125 mcg capsule 125 mcg PO DAILY Humulin R U-500 (Conc) Insulin 500 unit/mL solution 25 unit subcut ONCE fluoxetine 60 mg tablet 60 mg PO DAILY gabapentin 400 mg capsule 400 mg PO TID warfarin 5 mg tablet 5 mg PO QMWF ergocalciferol (vitamin D2) [Vitamin D2] 50,000 UNIT capsule 50,000 unit PO Q7D pantoprazole [Protonix] 40 MG packet 40 mg PO BID potassium gluconate 90 MG tablet 90 mg PO BID tramadol 50 mg tablet citalopram 20 mg tablet levothyroxine [Synthroid] 50 mcg tablet pantoprazole 40 mg tablet,delayed release (DR/EC) PO gabapentin 300 mg capsule levothyroxine [Synthroid] 200 mcg tablet albuterol sulfate 90 mcg/actuation HFA aerosol inhaler INHALATION Patient Comments: 2 PUFFS INHALATION EVERY 4 HOURS NEEDED cyclobenzaprine 5 mg tablet rosuvastatin 40 mg tablet Patient Comments: TAKE 1 TABLET BY MOUTH EVERY DAY levofloxacin 500 mg tablet 500 mg PO DAILY 14 Days Qty: 14 0RF oxycodone-acetaminophen [Percocet] 5-325 mg tablet 1 tab PO Q6H 3 Days Qty: 12 0RF Primary Care Provider: Logan Solano Chi Referrals: Logan Solano Chi, MD [Primary Care Provider] -
[2023-05-01] MEDS: Oxycodone/Apap 5/325 Tablet PO (00:32)
[2023-05-01 02:17] VITALS: RESP 18
[2023-05-01] MEDS: morphine 10 MG/ML Syringe 8 MG SC (02:55)
[2023-05-01 02:58] VITALS: BP 133/58; RESP 20; O2SAT 93
== END 2023-05-01 03:10 | disposition home or self-care (01) ==
PROVIDERS: Emergency Provider Emergency Medicine; PCP Family Medicine Geriatric Medicine; Visit Provider Emergency Medicine
DX: J98.8 Other specified respiratory disorders (principal); I50.9 Heart failure, unspecified; E11.9 Type 2 diabetes mellitus without complications; Z79.4 Long term (current) use of insulin; S83.91XA Sprain of unspecified site of right knee, initial encounter; F12.90 Cannabis use, unspecified, uncomplicated; E66.9 Obesity, unspecified; Z79.899 Other long term (current) drug therapy; Z79.01 Long term (current) use of anticoagulants; Z87.891 Personal history of nicotine dependence; W19.XXXA Unspecified fall, initial encounter
CPT/HCPCS: 72170; 73552; 73562; 73610; 96372; 99284

== ENCOUNTER → 2023-05-06 | Outpatient (CLI) | payer MEDICARE, SELFPAY ==
[2023-05-06 15:43] LABS: Absolute Lymphocyte Count 2.04 X10^3/uL (0.83-4.51); Absolute Neutrophil Count 6.5 X10^3/uL (2.0-7.7); Basophil# 0.03 X10^3/uL; Basophil% 0.3 % (0-1); Eosinophil# 0.18 X10^3/uL; Eosinophils% 1.9 % (0-5); Hematocrit 40.2 % (37-47); Hemoglobin 13.2 g/dL (12.0-15.0); Lymphocyte # 2.04 X10^3/ul (0.83-4.51); Lymphocyte % 21.7 % (19-41); Mean Corp Hgb Conc 32.8 g/dL (32-36); Mean Corpuscular Hgb 30.8 pg (27.0-32.0); Mean Corpuscular Volume 93.9 fL (81-99); Mean Platelet Vol. 8.4 fl (6.2-12.0); Monocyte# 0.64 X10^3/uL; Monocyte% 6.8 % (0-10); NRBC Flagged by Analyzer 0 % (0-5); Neutrophil # 6.45 X10^3/uL (2.7-7.7); Neutrophil % 68.9 % (47-70); Platelet Count 317 K/mm3 (150-450); RBC Distribution Width CV 14.4 % (11.6-14.6); RBC Distribution Width SD 48.9 fl (35.1-43.9); Red Blood Count 4.28 M/mm3 (4.2-5.4); White Blood Count 9.4 K/mm3 (4.4-11.0)
[2023-05-06 16:16] LABS: ALB/GLOB Ratio 0.7 RATIO (0.9-2.4); AST(SGOT) 18 U/L (15-37); Alanine Aminotransfer ALT/SGPT 24 U/L (13-56); Alkaline Phosphatase 375 U/L (45-117); Anion Gap 7 (5-15); BUN 13 mg/dL (7-18); BUN/Creat Ratio 13.7 RATIO (10-20); Calcium,Total 9.6 mg/dL (8.5-10.1); Chloride 100 mmol/L (98-107); Creatinine, Serum 0.95 mg/dL (0.55-1.02); EST Glomerular Filtration Rate 65 mL/min (>60); Est Glom Filt Rate - Afr Amer 79 mL/min (>60); Globulin 4.2 g/dL (2.2-4.2); Glucose 111 mg/dL (74-106); Potassium 3.3 mmol/L (3.5-5.1); Protein, Total 7.2 g/dL (6.4-8.2); Sodium Level 139 mmol/L (136-145); Thyroid Stim Hormone (TSH) 1.38 uIU/mL (0.358-3.74)
== END | disposition home or self-care (01) ==
LOC: POLAB3 14:42
PROVIDERS: PCP Family Medicine Geriatric Medicine; Visit Provider Family Medicine Geriatric Medicine
DX: E11.65 Type 2 diabetes mellitus with hyperglycemia (principal); I10 Essential (primary) hypertension
CPT/HCPCS: 36415; 80053; 84443; 85025

== ENCOUNTER → 2023-05-21 | Outpatient (CLI) | payer MEDICARE, SELFPAY ==
[2023-05-21 15:11] LABS: Anion Gap 3 (5-15); BUN 30 mg/dL (7-18); BUN/Creat Ratio 26.5 RATIO (10-20); Calcium,Total 10.6 mg/dL (8.5-10.1); Chloride 95 mmol/L (98-107); Creatinine, Serum 1.13 mg/dL (0.55-1.02); EST Glomerular Filtration Rate 53 mL/min (>60); Est Glom Filt Rate - Afr Amer 64 mL/min (>60); Glucose 145 mg/dL (74-106); Potassium 4.1 mmol/L (3.5-5.1); Sodium Level 133 mmol/L (136-145)
[2023-05-21 19:09] LABS: M R Staph aureus DNA By PCR Negative (Negative); Probe Check PASS; Specimen Processing Control PASS; Staph aureus DNA By PCR NEGATIVE (Negative)
== END | disposition home or self-care (01) ==
LOC: POLAB3 14:17
PROVIDERS: PCP Family Medicine Geriatric Medicine; Visit Provider Family Medicine Geriatric Medicine
DX: L03.116 Cellulitis of left lower limb (principal); N18.31 Chronic kidney disease, stage 3a
CPT/HCPCS: 36415; 80048; 87070; 87077; 87186; 87205; 87640

== ENCOUNTER → 2023-05-21 | Outpatient (CLI) | payer MEDICARE, SELFPAY ==
--- NOTE | 2023-05-21 14:38 | RAD_ITS ---
STUDY: X-RAY - RIGHT KNEE REASON FOR EXAM: Female, 52 years old. Knee pain. TECHNIQUE: 4 views of the right knee. COMPARISON: None. FINDINGS: Normal visualized distal femur. Normal visualized proximal tibia and fibula. Normal proximal tibiofibular articulation. There is no demonstrated fracture. There is severe degenerative arthrosis of the medial femorotibial compartment with severe joint space narrowing. There is mild degenerative arthrosis of the lateral femorotibial compartment. There is moderate degenerative arthrosis of the patellofemoral articulation. The soft tissue structures are unremarkable. RAD/Knee 3 Views IMPRESSION: Tricompartment degenerative arthrosis, most severe in the medial femorotibial compartment. No demonstrated fracture. Electronically Signed: Pedrito Vargas MD at 14:55 EST ,
== END | disposition home or self-care (01) ==
LOC: RAD 14:30
PROVIDERS: PCP Family Medicine Geriatric Medicine; Visit Provider Family Medicine Geriatric Medicine
DX: M25.561 Pain in right knee (principal)
CPT/HCPCS: 73562

== ENCOUNTER 2023-11-18 13:11 | Outpatient (RCR) | payer MEDICARE, SELFPAY ==
[2023-11-18 14:01] VITALS: BP 146/74; PULSE 78; RESP 22; TEMP 36.4; BMI 75.8
--- NOTE | 2023-11-18 15:47 | PCM.WC.HP ---
History of Present Illness Date of Service: 11/18/23 Chief Complaint: Intertrigo pannus ulcer History of Wound: 53 year old female presents with an ulcer on her right lower abdomen/pannus ulcer that she states started 6 weeks ago. She was admitted to [facility] for cellulitis 2 weeks ago. She is finishing up antibiotics she was given after leaving the hospital. She was referred here from her hospital stay in [place]. She has a history of Type 2 IDDM, COPD, CHF, CKD stage 3, Migraine, hypothyroidism and a previous pannus ulcer where she was treated here. She is on Warfarin. She has been cleaning the wound with soap and water and keeping a dry wash cloth over the wound to absorb the drainage. She changes the wash cloth every couple days. She comes in today for further evaluation and treatment. Progress of Wound: She has an ulcer on her right lower abdomen/pannus area. There is non viable tissue present. [facility] Medical History Portal vein thrombosis Hypokalemia GERD (gastroesophageal reflux disease) Depression Hypothyroidism Gout Iron deficiency Migraine COPD (chronic obstructive pulmonary disease) Asthma CHF (congestive heart failure) Diabetes Fecal impaction of colon DYKES (nonalcoholic steatohepatitis) Hx of small bowel obstruction Home Medications ?Medication ?Instructions ?Recorded ?Last Taken ?Type ergocalciferol (vitamin D2) 1,250 50,000 unit PO Q7D 07/01/13 Unknown History mcg (50,000 unit) capsule (Vitamin D2) pantoprazole 40 mg granules 40 mg PO BID 07/01/13 Unknown History delayed-release for susp in packet (Protonix) potassium gluconate 550 mg (90 mg) 90 mg PO BID 07/01/13 Unknown History tablet fluoxetine 60 mg tablet 60 mg PO DAILY 09/20/22 02/20/23 History gabapentin 400 mg capsule 400 mg PO TID 09/20/22 Unknown History insulin regular hum U-500 conc 500 25 unit subcut ONCE 09/20/22 Unknown History unit/mL subcutaneous soln (Humulin R U-500 (Concentrated) Insulin) levothyroxine 125 mcg capsule 125 mcg PO DAILY 09/20/22 Unknown History metoprolol succinate 50 mg 50 mg PO DAILY 09/20/22 Unknown History tablet,extended release 24 hr spironolactone 100 mg tablet 300 mg PO BID 09/20/22 Unknown History trazodone 100 mg tablet 100 mg PO DAILY 09/20/22 Unknown History warfarin 5 mg tablet 5 mg PO QMWF 09/20/22 Unknown History levofloxacin 500 mg tablet 500 mg PO DAILY 14 days #14 tabs 02/20/23 Unknown Rx oxycodone-acetaminophen 5 mg-325 1 tab PO Q6H 3 days #12 tabs 04/30/23 Unknown Rx mg tablet (Percocet) albuterol sulfate 90 mcg/actuation inhalation 05/01/23 Unknown History aerosol inhaler citalopram 20 mg tablet mg 05/01/23 Unknown History cyclobenzaprine 5 mg tablet mg 05/01/23 Unknown History gabapentin 300 mg capsule mg 05/01/23 Unknown History levothyroxine 200 mcg tablet mcg 05/01/23 Unknown History (Synthroid) levothyroxine 50 mcg tablet mcg 05/01/23 Unknown History (Synthroid) pantoprazole 40 mg tablet,delayed mg PO 05/01/23 Unknown History release rosuvastatin 40 mg tablet mg 05/01/23 Unknown History tramadol 50 mg tablet mg 05/01/23 Unknown History amoxicillin 875 mg-potassium 1 tab PO BID 11/18/23 Unknown History clavulanate 125 mg tablet Allergy/AdvReac Type Severity Reaction Status Date / Time dulaglutide (From [facility]) Allergy Mild pancreatiti Verified 11/18/23 14:13 s cobalt Allergy Rash Verified 11/18/23 14:13 Environmental Allergies: Allergy Rash Verified 11/18/23 14:13 Uncoded metformin Allergy Diarrhea Verified 05/01/23 00:28 nickel Allergy Rash Verified 11/18/23 14:13 Family History Mother Heart disease Arthritis Glaucoma Hypertension HLD (hyperlipidemia) Father Heart disease Hypertension HLD (hyperlipidemia) Surgical History H/O knee surgery History of carpal tunnel release H/O hernia repair H/O: hysterectomy Previous section Social History Smoking Status: Former smoker alcohol intake: never substance use type: marijuana ROS Constitutional Constitutional: Reports fatigue; Denies fever(s) Eyes Eyes: Reports none ENT HEENT: Reports none Cardiovascular Cardiovascular: Denies chest pain or dyspnea Respiratory/Chest Respiratory/Chest: Reports dyspnea; Denies cough Gastrointestinal Gastrointestinal: Reports none Genitourinary Genitourinary: Reports systems reviewed and no addt'l complaints, except as documented Musculoskeletal Musculoskeletal: Reports joint pain and joint stiffness Integumentary Integumentary: Reports skin ulcer Neurologic Neurologic: Reports systems reviewed and no addt'l complaints, except as documented Psychiatric Psychiatric: Reports systems reviewed and no addt'l complaints, except as documented Endocrine Endocrinology: Reports systems reviewed and no addt'l complaints, except as documented Vital Signs Vital Signs Vital Signs: 11/18/23 14:01 Temperature 97.5 F L Temperature Source Temporal Pulse Rate 78 Respiratory Rate 22 H Blood Pressure 146/74 H Blood Pressure Mean 98 Blood Pressure Source Monitor Weight Weight: 414 lb 11.419 oz Body Mass Index (BMI) 75.8 Physical Exam Const alert, oriented x3 and no apparent distress General Appearance: cooperative HEENT normocephalic Head and Scalp: atraumatic Eyes General Eye: normal appearance of both eyes Neck full ROM Lymph Lymphatic: no lymphedema noted Resp normal respiratory effort, normal air movement and clear to auscultation bilaterally Effort and Inspection: able to speak in complete sentences Cardio regular rate and regular rhythm GI soft to palpation and non-tender Back/Spine normal ROM Extremity full ROM and normal capillary refill Skin Wound Narrative: Right lower abdomen/panus ulcer is pink. There is some non viable tissue present. No erythema surrounding tissue. Neuro oriented x3 Psych mental status grossly normal, thought process normal and cooperative Debridement Note Debridement Note No debridement was completed: No debridement was completed today (Her insurance will not cover a debridement) Post-Debridement Measurements and Additional Note: Post-Debridement Measurements/Treatment - Nurse 1 - General Ulcer Assessment Start: 11/18/23 14:01 Freq: Status: Active Protocol: ANANDA Activity Type Activity Date Activity User E-sign Co-sign Detail Recorded Client Recorded Date Recorded By Document 11/18/23 14:01 DL [id number] 11/18/23 14:09 DL 11/18/23 14:01 - Today's Visit Information Type of service Initial Visit Arrival Mode Wheelchair Transfer Assistance Manual Transfer Assist (Other) x2 Patient Identification Verified (Name & Yes ) Patient Requires Transmission-Based No Precautions Finger Stick Blood Sugar(mg/dl) (if 220 indicated): Blood Sugar Stated by Patient Height and Weight Height 5 ft 2 in Weight 414 lb 11.419 oz Weight in Pounds 414.7 lbs Body Mass Index (BMI) 75.8 BMI Classification Obese BSA - Benito 2.61 Vital Signs Temperature (97.8 F-99.1 F) 97.5 F L Temperature Source Temporal Pulse Rate (60-100) 78 Pulse Location Monitor Respiratory Rate (12-18) 22 H Respiratory rate source Observation Blood Pressure (90/60-120/80) 146/74 H Blood Pressure Mean 98 Source Monitor Pain Scale: 0-10 Numeric Is Patient Pain Free? Yes Communication Assessment Preferred language Moz[place] Able to Read Yes Able to Write No Communication Tools None Right Hearing Abillity Normal Left Hearing Abillity Normal Visual Assistive Devices Glasses Teaching Assessment Preferences Verbal,Written, Demonstration Barriers to Learning None Readiness To Learn Fair Willingness to Engage in Self Management Med Activies Readiness to Engage in Self Management Med Activities Anxiety Level Anxious Cooperation Cooperative Perception Coherent Interest in Health Problem Asks Questions Education Importance Acknowledges Need Does Patient Smoke tobacco or other No substances Smoking Status Former smoker Is Patient Diabetic Yes Functional Assessment Recent Decline in Ability to Perform Denies Any Declines Culture/Islam/Patcher Helper Cultural/Islam Needs that may affect No Treatment Plan Would you allow our hospital gas furnace installer to No meet you for the purpose of spiritual/ emotional support? Patcher Helper to contact place of mandaeism No Teaching: Wound Center Discharge Instructions -Person Taught Patient Dressing Your Wound -Person Taught Patient *Welcome to the Wound Center -Person Taught Patient WC - Nurse 1 - General Ulcer Measurement Start: 11/18/23 14:01 Freq: Status: Active Protocol: Activity Type Activity Date Activity User E-sign Co-sign Detail Recorded Client Recorded Date Recorded By Document 11/18/23 14:01 DL [id number] 11/18/23 14:09 DL 11/18/23 14:01 Wound Center Nurse 1 #2 Lower ABD -Current Size (cm) - Length 5 -Current Size (cm) - Width 2.8 -Current Size (cm) - Depth 0.1 -Total Square Cm 14.0 -Photo Taken Yes -Classification - Thickness Full Thickness without Exposed Support Structure -Exudate Amt Medium -Exudate Type Serosanguineous -Wound Margin Distinct, Outline Attached -Granulation Amt Large (67-100%) -Granulation Quality Red -Necrosis Amt Small (1-33%) -Necrotic Tissue Type Adherent Slough -Structure Exposed N/A -Texture (Elizabeth-wound Skin Appearance) Scarring -Moisture (Elizabeth-wound Skin Appearance) No Abnormality -Color (Elizabeth-wound Skin Appearance) No Abnormality -Temperature (Elizabeth-wound Skin No Abnormality Appearance) (Pt Warm) -Tenderness on Palpation (Elizabeth-wound No Skin Appearance) -Ulcer Cleansing Soap and Water -Foul Odor after Cleansing No -Anesthetic Used 5% Lidocaine Gel WC - Nurse 2 - General Ulcer CM Notes Start: 11/18/23 14:01 Freq: Status: Active Protocol: Activity Type Activity Date Activity User E-sign Co-sign Detail Recorded Client Recorded Date Recorded By Document 11/18/23 14:37 [place] [id number] 11/18/23 14:42 DS Edit Result 11/18/23 14:37 DS (1) [id number] 11/18/23 15:45 DS (1) #2 Lower ABD - Correct Side, Site, Position No => Yes - Correct Procedure No => Yes - Procedure Performed No => Yes - Type of Procedure => Debridement - Clinical Debridement => Subcutaneous - Tissue Removed => Subcutaneous - Bleeding Controlled with => Pressure - Treatment Response => Procedure => Tolerated Well - Debridement - Subq, 20sq cm => Yes 11/18/23 14:37 Wound Center Nurse 2 -Time 14:37 -Correct Patient Yes -Correct Side, Site, Position Yes -Correct Procedure Yes -Procedure Performed Yes -Type of Procedure Debridement -Clinical Debridement Subcutaneous -Tissue Removed Subcutaneous -Post Debridement (cm) - Length 4.5 -Post Debridement (cm) - Width 3.0 -Post Debridement (cm) - Depth 0.1 -Total Square (Post) (cm) 13.50 -Area of Debridement (cm) - Length 4.5 -Area of Debridement (cm) - Width 3.0 -Total Square (Area) (cm) 13.50 -Tunneling No -Undermining/Tunneling No -Circular Undermining No -Wound/Ulcer Outcome Not Healed -Ulcer Cleansing Rinsed/ Irrigated with Saline -Bleeding Controlled with Pressure -Treatment Response Procedure Tolerated Well -Debridement - Subq, 1st 20sq cm Yes Pain Scale: 0-10 Numeric Is Patient Pain Free? Yes WC - Nurse 3 - General Ulcer D/C NN Start: 11/18/23 14:01 Freq: Status: Active Protocol: Activity Type Activity Date Activity User E-sign Co-sign Detail Recorded Client Recorded Date Recorded By Document 11/18/23 15:04 PETER [id number] 11/18/23 15:05 PETER 11/18/23 15:04 Wound Care Center Nurse 3 #2 Lower ABD -Ulcer Cleansing Rinsed/ Irrigated with Saline -Foul Odor after Cleansing No -Primary Dressing Applied Mepilex Border, Promogran Treasure Matter -Mepilex Border 1 -Promogran Treasure Matter 1 Pain Scale: 0-10 Numeric Is Patient Pain Free? Yes WC - Visit Discharge Discharge Condition Stable Ambulatory Status Wheelchair Transportation Private Auto Accompanied by Medication Reconcilliation completed & Yes provided to patient/care provider Clinical Summary of Care Provided Yes Charges/Coding Visit Charges Office Visits / Consults: [id number] OV L3 Est 20min Assessment/Plan Assessment/Plan (1) Skin ulcer of abdomen with fat layer exposed: CODE(S): L98.492 - Non-pressure chronic ulcer of skin of other sites with fat layer exposed (2) Anticoagulant long-term use: CODE(S): Z79.01 - FPC (current) use of anticoagulants (3) Diabetes: CODE(S): E11.9 - Type 2 diabetes mellitus without complications (4) Morbid obesity with BMI of 60.0-69.9, adult: CODE(S): E66.01 - Morbid (severe) obesity due to excess calories; Z68.44 - Body mass index [BMI] 60.0-69.9, adult PLAN: Plan Patient evaluated at the wound healing center. Unable to do a debridement due to insurance purposes. Wiped the ulcer with moistened gauze. She is still on antibiotics from being hospitalized, therefore a wound culture was not obtained. Wound care - Treasure covered by ABD daily after washing with soap and water. Follow up 2 weeks due to the holiday next week.
--- NOTE | 2023-11-20 09:06 | WC ---
I have been trying to get ahold of patient and her who is patient's next of kin to ask her a wound related question but the phones have been disconnected. Rosalba from office was able to obtain patient's mother's number who is listed as a contact and was able to talk to her about needing to get in touch with patient. She said patient was suppose to give us their new numbers on Saturday. She will reach out to Janis to have her contact me. Thanked her for her time.
== END 2023-11-29 23:59 | disposition home or self-care (01) ==
LOC: WC 13:11
PROVIDERS: PCP Internal Medicine; Referring Provider Internal Medicine; Visit Provider Nurse Practitioner Family
DX: E11.622 Type 2 diabetes mellitus with other skin ulcer (principal); L98.492 Non-pressure chronic ulcer of skin of other sites with fat layer exposed; I50.9 Heart failure, unspecified; J44.9 Chronic obstructive pulmonary disease, unspecified; E66.01 Morbid (severe) obesity due to excess calories; Z68.45 Body mass index [BMI] 70 or greater, adult; Z79.4 Long term (current) use of insulin; E11.22 Type 2 diabetes mellitus with diabetic chronic kidney disease; N18.30 Chronic kidney disease, stage 3 unspecified; Z87.891 Personal history of nicotine dependence; Z79.01 Long term (current) use of anticoagulants; L30.4 Erythema intertrigo; Z79.899 Other long term (current) drug therapy; E03.9 Hypothyroidism, unspecified; Z79.890 Hormone replacement therapy
CPT/HCPCS: 11042